=== PATIENT | female | born 1940 | race Caucasian/White ===

== ENCOUNTER 2024-08-14 11:08 | Outpatient (AMB) | payer MEDICARE, SELFPAY ==
--- NOTE | 2024-08-14 11:11 | MHC.PC.OV ---
Vital Signs 08/14/24 11:20 Height 5 ft 2 in Weight 140 lb BMI 25.6 BP 139/68 Blood Pressure Location Rt brachial Position Sitting Respiration 16 Pulse 70 Pulse Source Pulse Oximeter Temp 98.3 F Temp Source Oral Pulse Oximetry (%) 96 Oxygen Delivery Method Room Air Intake Visit Reasons: STICKER HAND-PE Intake Note: patient here for new patient visit. 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 Accompanied by: Daughter Is last menstrual period known: No Post menopausal: No Patient : No Allergies No Known Allergies Allergy (Verified 08/14/24 11:25) Tobacco use date assessed: 08/14/24 Fall risk assessment: 2 + Falls in past year Last assessed Fall Risk: 08/14/24 Dental Screening Dental Screen Date: 08/14/24 Did you have a dental visit in the last 12 months?: Yes Did you have a dental problem in the last 6 months where you did not have access to dental care?: No Was dental information given to patient?: Patient has dentist HPI HPI Comments History of Present Illness Details 84-year-old female, accompained by her daughter, presents to establish care. Prior PCP? - [facility] Last office visit/CPE/labs - About a year ago Acute issue(s) - Hyperlipidemia: On prevastatin 20 mg daily - Anxiety and depression: Reports controlled anxiety and depressive symptoms. She is on paraxotine 10 mg daily - Osteopenia: On Daily Calcium and Vitamin D3 - Obstructive sleep apnea: She had 2 sleep studies and recommended to have a 3rd sleep study to rule out central sleep apnea. Not on BIPAP or CPAP - Chronic intermittent swelling to bilateral lower legs/ankles Past Medical History - Hyperlipidemia, myopia, osteopenia, obstructive sleep apnea, anxiety, depression, memory loss, shingles, BCC (left chest, left upper lip, left lower leg) Surgical History - Tonsillectomy Family History - Dad: Alcohol abuse - Mom: Alcohol abuse Social History - Nonsmoker. Does not vape. Does not drink alcohol. Denies recreational drug use - Has been making healthy dietary choices. Active but does not exercise. Generally sleep well Health maintenance - Last eye exam was 01/29/2024 at [facility]. She will sign a release for her PCP to obtain her eye record - Last dental visit was over over a year ago; encouraged to schedule an appointment with his dentist for routine dental care - Unsure of last tetanus vaccine. She will review her old records and inform her PCP to update Tdap as needed - She notes that she is up-to-date on influenza vaccine - She had 1 shingles vaccine 3 -4 years ago and 1 pneumonia vaccine in 09/2023. Encouraged to update her shingles and pneumonia immunization. She may get the vaccines from the local pharmacy - She no long performs pap smear tests - Last mammogram was with [facility] in 07/25/2024: Benign findings. Additional mammogram or ultrasound recommended; she requests a new order. - Unsure of last colonoscopy but notes it is possibly 6-7 years ago while in [place]. She will obtain her last colonoscopy record for her PCP to review and update as needed - Last dexa scan was with [facility] in 10/20/2022 Specialists: [facility] Medical History (Updated 08/14/24 @ 16:36 by Luca Dorantes CNP) Shingles Depression Anxiety Memory loss High cholesterol Surgical History (Updated 08/14/24 @ 13:33 by Luca Dorantes CNP) Hx of tonsillectomy Family History (Updated 08/14/24 @ 11:34 by Tran Sheppard MA) Father Alcohol abuse Mother Alcohol abuse Diabetes Son Alcohol abuse Daughter FH: mental illness Social History Housing: House Patient Tobacco Use Status: Never used Tobacco e-Cigarette/Vaping Use: Never Used Second Hand Smoke Exposure: No service: No Current occupational status: retired Cognitive needs: No Hearing needs: No Vision needs: No Questionnaire PHQ-9 Over the last 2 weeks, how often have you been bothered by any of the following problems? 1. Little interest or pleasure in doing things: more than half the days 2. Feeling down, depressed, or hopeless: not at all 3. Trouble falling or staying asleep, or sleeping too much: not at all 4. Feeling tired or having little energy: several days 5. Poor appetite or overeating: not at all 6. Feeling bad about yourself - or that you are a failure or have let yourself or your family down: not at all 7. Trouble concentrating on things, such as reading the newspaper or watching television: more than half the days 8. Moving or speaking so slowly that other people could have noticed. Or the opposite - being so fidgety or restless that you have been moving around a lot more than usual: not at all 9. Thoughts that you would be better off or of hurting yourself in some way: not at all Total score: 5 Depression Screening Interpretation: Positive Depression Screening Follow-up: Existing condition and In treatment Depression Screening Done: Yes 97095 - PHQ-9 Billing: Yes Source: Developed by Drs. Carmelo Mcduffie, Holly Batista, Lauri Quigley and colleagues, with an educational madhuri from [employer]. Thrive Questionnaire Date Thrive assessed: 08/14/24 I am a: Patient What is your living situation today?: I have a steady place to live Within the past 12 months, did the food you bought not last and you didn't have the money to get more?: Never true Within the past 12 months, did you worry whether your food would run out before you got money to buy more?: Never true Do you have trouble paying for medicines?: No Do you have trouble getting transportation to medical appointments?: No Do you have trouble paying your heating and electricity bill?: No Do you have trouble taking care of your child, family member or friend?: No Do you have trouble with day-to-day activities such as bathing, preparing meals, shopping, managing finances, etc.?: No Are you currently unemployed and looking for a job?: No Are you interested in more education?: No Please select the resources that you would like help with: None Currently or been in a relationship where the following occur: No concerns reported THRIVE Score: 0 AUDIT C Alcohol Use Questionnaire (AUDIT-C) 1. How often do you have a drink containing alcohol?: Never 2. How many drinks containing alcohol do you have on a typical day when you are drinking?: 1 or 2 3. How often do you have six or more drinks on one occasion?: Never Total Score: 0 Score Reviewed/Action Taken: Yes JORGITO-7 AMB Questionnaire JORGITO-7 Date JORGITO - 7 assessed: 08/14/24 Feeling nervous, anxious, or on edge: 0 = Not at all Not being able to stop or control worryin = Nearly every day Worrying too much about different things: 2 = More than half the days Trouble relaxin = Not at all Being so restless that it is hard to sit still: 1 = Several days Becoming easily annoyed or irritable: 0 = Not at all Feeling afraid as if something awful might happen: 1 = Several days Total JORGITO-7 score (0-4 normal; 5-9 mild; 10-14 moderate; 15-21 severe): 7 Source: Developed by Drs. Carmelo Mcduffie, Holly Batista, Lauri Quigley and colleagues, with an educational madhuri from [employer]. JORGITO-7 Assessment Billing JORGITO-7 Assessment Tool: JORGITO-7 Assessment 66101 Review of Systems Const Details: Denies chills, Denies fatigue, Denies fever(s), Denies headache(s) and Denies weakness HEENT Denies change in vision, Denies dizziness, Denies headache(s), Denies hearing loss, Denies nasal congestion, Denies sinus pain, Denies sinus pressure and Denies sore throat Card Denies chest pain, Denies lightheadedness, Denies dyspnea and Denies other (palpitations) Resp Denies cough, Denies dyspnea and Denies wheezing GI Denies abdominal pain, Denies melena, Denies hematochezia, Denies change in bowel habits, Denies dyspepsia and Denies nausea Denies hematuria and Denies dysuria Musc Denies abnormal gait, Denies myalgias, Denies arthralgias, Denies numbness and Denies tingling Skin/Breast Denies rash, Denies unusual bruising and Denies wounds Neuro Denies abnormal gait, Denies dizziness, Denies headache(s), Denies memory loss, Denies numbness, Denies Sensory deficit (Neuro), Denies tingling and Denies weakness Psych Denies anxiety, Denies depression and Denies memory loss Endo Denies cold intolerance, Denies fatigue, Denies heat intolerance, Denies polydipsia and Denies polyuria Duong/Lymph Denies easy bleeding and Denies easy bruising Aller/Immun Denies wheezing Physical exam (Primary Care) Vital Signs: Last Vital Signs Temp 98.3 F 08/14/24 11:20 Pulse 70 08/14/24 11:20 Resp 16 08/14/24 11:20 BP 139/68 08/14/24 11:20 Pulse Ox 96 08/14/24 11:20 Oxygen Delivery Method Room Air 08/14/24 11:20 BMI result Body Mass Index 25.6 Tobacco/Smoking Status: Tobacco use Status Tobacco use date assessed 08/14/24 08/14/24 11:20 Patient Tobacco Use Status Never used Tobacco 08/14/24 11:20 e-Cigarette/Vaping Use Never Used 08/14/24 11:20 PHQ-9: PHQ-9 Score PHQ-9: Total score 5 08/14/24 13:24 Depression Screening Interpretation: Positive Depression Screening Follow-up: Existing condition and In treatment Thrive Assessment: Date of Thrive Assessment Date Thrive assessed 08/14/24 08/14/24 11:15 Currently or been in a relationship where the following occur: No concerns reported Const Other: General: no acute distress, well developed, alert and awake Nutritional Appearance: well nourished Orientation/consciousness: patient oriented x3 HENMT Head: Yes normocephalic and Yes atraumatic Ears: hearing grossly normal bilaterally and TM's normal bilaterally General nose exam: Normal external nose present and Normal nares present Mouth: Normal oral and palatal mucosa present and moist mucous membranes Teeth and gingiva: Full upper and partial lower dentures Throat: Yes oropharynx normal Eyes Pupils: Equal, round and reactive pupils present and Pupil accommodation reflex normal EOM: EOMs intact bilaterally Neck Neck: Yes normal visual inspection, Yes no lymphadenopathy and Yes trachea midline Thyroid: Thyroid normal Carotids: no bruits Lymphatic: no lymphadenopathy noted Chest Chest palpation & inspection: normal inspection of the chest Resp Effort & Inspection: normal respiratory effort Auscultation: clear to auscultation bilaterally Cardio Rate: regular rate Rhythm: regular rhythm Heart sounds: S1 normal heart sound present, S2 normal heart sound present, no gallops, no murmurs and no rubs Bruits: no abdominal aortic bruits and no carotid bruits GI Palpation (GI): No Abdominal aortic bruit present, Soft to palpation, nontender, No hepatosplenomegaly present and No Rebound tenderness present Auscultation: normal bowel sounds General: Yes no CVA tenderness Back/Spine/Pelvis Back: no CVA tenderness Cervical Spine: cervical ROM normal and No Cervical spine tenderness Thoracic/Lumbar Spine: thoraco-lumbar ROM normal, No pain with thoraco-lumbar ROM, No thoracic spinal tenderness and No lumbar spinal tenderness Skin General: warm and dry. Normal skin color. Normal skin turgor Lesions: no lesions Rashes: no rashes Trauma: no lacerations or abrasions Wounds: no wounds Nails: normal Neuro General: patient oriented x3, gait normal and CN's II-XI intact bilaterally Cranial nerves: Yes Equal, round and reactive pupils present Cognition (Neuro): normal cognition Gait exam (Neuro): Normal gait present Motor exam (neuro): 5/5 motor strength present throughout Sensory Exam: No Sensory deficit (Neuro) Deep tendon reflexes (DTR's): Right patellar reflex intensity grade: 2+ and Left patellar reflex intensity grade: 2+ Extrem General: Yes normal to inspection, No edema and No calf tenderness Psych Appearance: grossly normal Affect: normal affect Attitude: cooperative Thought process: Normal thought process present Coding Level of Care Code New Pt Level 3 (11802) New Pt Prev Care >65yr (95133) Diagnoses Normal physical examination, routine Z00.00 High cholesterol E78.00 Anxiety and depression F41.9; F32.A Bilateral lower extremity edema R60.0 Osteopenia M85.80 Obstructive sleep apnea G47.33 Breast cancer screening by mammogram Z12.31 Vaccine counseling Z71.85 Laboratory tests ordered as part of a complete physical exam (CPE) Z00.00 Additional Codes JORGITO-7 Assessment Billing - JORGITO-7 Assessment Tool: JORGITO-7 Assessment 86744 ([id number]) PHQ-9 - 29770 - PHQ-9 Billing: Yes ([id number]) Assessment & Plan Assessment & Plan (1) Normal physical examination, routine: Code(s): Z00.00 - Encounter for general adult medical examination without abnormal findings Category: Medical Plan: No significant functional limitation noted. Continue current treatment regimen. Fast for 10-12 hours, may drink water, and perform lab work 2-3 days before next visit. Follow-up in 2-3 days for telehealth visit for labs review or sooner with symptoms or concerns. Verbalized understanding and agreed with treatment plan. (2) High cholesterol: Code(s): E78.00 - Pure hypercholesterolemia, unspecified Category: Medical Plan: Continue to take pravastatin as prescribed. Advised to limit foods high in saturated fat and avoid foods high in trans fat. Routine exercise encouraged. Will check lipid panel and make changes as needed. Verbalized understanding and agreed with treatment plan. (3) Anxiety and depression: Code(s): F41.9 - Anxiety disorder, unspecified; F32.A - Depression, unspecified Category: Medical Plan: Controlled anxiety and depressive symptoms. PHQ-9 and JORGITO-7 scores revealed mild depression and anxiety. Continue to take paroxetine as prescribed. Routine exercise encouraged. Follow-up with symptoms or concerns. Verbalized understanding and agreed with treatment plan. (4) Bilateral lower extremity edema: Code(s): R60.0 - Localized edema Category: Medical Plan: Chronic intermittent swelling to bilateral lower legs/ankles. Bilateral lower legs and ankle normal; no edema present at this time. Advised to avoid wearing tight fitted socks. Also avoid prolonged standing or walking. Elevate bilateral lower extremities to improve swelling. Follow-up with worsening or new signs and symptoms. Verbalized understanding and agreed with treatment plan. (5) Osteopenia: Code(s): M85.80 - Other specified disorders of bone density and structure, unspecified site Category: Medical Plan: Continue current treatment regimen. Last dexa scan was with [facility] in 10/20/2022. DEXA scan ordered. (6) Obstructive sleep apnea: Code(s): G47.33 - Obstructive sleep apnea (adult) (pediatric) Category: Medical Plan: Obstructive sleep apnea: She had 2 sleep studies and recommended to have a 3rd sleep study to rule out central sleep apnea. Not on BIPAP or CPAP. Referred to [facility] sleep medicine. (7) Breast cancer screening by mammogram: Code(s): Z12.31 - Encounter for screening mammogram for malignant neoplasm of breast Category: Medical Plan: Last mammogram was with [facility] in 07/25/2024: Benign findings. Additional mammogram or ultrasound recommended; she requests a new order. Mammogram ordered. (8) Vaccine counseling: Code(s): Z71.85 - Encounter for immunization safety counseling Category: Medical Plan: She had 1 shingles vaccine 3 -4 years ago and 1 pneumonia vaccine in 09/2023. Encouraged to update her shingles and pneumonia immunization. She may get the vaccines from the local pharmacy. Verbalized understanding and agreed with the plan. (9) Laboratory tests ordered as part of a complete physical exam (CPE): Code(s): Z00.00 - Encounter for general adult medical examination without abnormal findings Category: Medical Plan: Fasting labs ordered as part of a complete physical exam. Advised to fast for at least 10 hours before getting labs drawn. May drink water Verbalized understanding and agreed with treatment plan. Orders: Orders XR DEXA axial skeleton Today M81.0 - Age-related osteoporosis without current pathological fracture, M85.80 - Other specified disorders of bone density and structure, unspecified site MM screening mammo BI Today Z12.31 - Encounter for screening mammogram for malignant neoplasm of breast Complete Blood Count Auto Diff Today Z00.00 - Encounter for general adult medical examination without abnormal findings Comprehensive [place]. Panel Fast Today Z00.00 - Encounter for general adult medical examination without abnormal findings Lipid Panel Today Z00.00 - Encounter for general adult medical examination without abnormal findings TSH reflex Free T4 Today Z00.00 - Encounter for general adult medical examination without abnormal findings Microalbumin, Random (w Creat) Today Z00.00 - Encounter for general adult medical examination without abnormal findings UA CC w/rflx Micro + Cult Today Z00.00 - Encounter for general adult medical examination without abnormal findings Vitamin D 25-OH Total Today Z00.00 - Encounter for general adult medical examination without abnormal findings Referrals Sleep Medicine Referral G47.33 - Obstructive sleep apnea (adult) (pediatric) Medications: New pravastatin 20 mg PO DAILY 30 tabs 3RF 30 days
[2024-08-14 11:20] VITALS: BP 139/68; PULSE 70; RESP 16; TEMP 36.8; O2SAT 96; BMI 25.6
--- OUTSIDE RECORDS SUMMARY | 2024-08-14 13:48 | XMS_ITS | Clinical Summary ---
Author Organization [address] [place] [address] [place] [phone] Phone Care Team Providers Care Can Solderer Name Role Phone Lio Lowe MD Primary Care Provider Unavaila ble Allergies No known active allergies Medications pravastatin (PRAVACHOL) 20 mg tablet TAKE 1 TABLET BY MOUTH EVERY DAY 90 tablet 05/04/2024 Active calcium carb-mag hydrox-simeth 1,200 mg-270 mg -80 mg/10 mL suspension Calcium Carbonate-Vi t D-Min (CALCIUM 1200 OR) Take 1 Tablet by mouth daily. Active PARoxetine (PAXIL) 10 mg tablet Take 1 Tablet by mouth 2 times daily. Active cholecalciferol (VITAMIN D-3) 50 mcg (2,000 unit) capsule Take 1 Capsule by mouth daily. Active Encounters Date Type Department Care Team Description 07/25/2024 3:20 PM EST - 07/25/2024 11:59 PM EST Hospital Encounter Radiology Department - [address] [phone] Encounter for screening mammogram for breast cancer Discharge Disposition: Home or Self Care 05/17/2024 Telephone Adult Medicine - [address] [phone] Argentina Schulte MD from Last 3 Months Immunizations Name Administration Dates Next Due Influenza trivalent, 0.5mL ( Fluad) 65yo and older 03/30/2023,05/06/2022 Moderna (age 6mo & older) Bi valent, COVID-19, 0.5 mL or 0.25 mL dosage 06/16/2022 Moderna SARS-CoV-2 COVID-19, mRNA, LNP-S, preservative free 09/30/2021,04/13/2021,09/01/2020,2020 Pneumococcal conjugate 20 va lent (Prevnar 20, PCV 20) 2mo and older 09/30/2023 Family History Medical History Relation Name Comments Breast cancer Cousin Breast cancer Daughter Breast cancer Mother's Sister Relation Name Status Comments Cousin Daughter Alive Mother's Sister Social History Tobacco Use Types Packs/Day Years Used Date Smoking Tobacco: Former Smokeless Tobacco: Never Alcohol Use Standard Drinks/Week Comments Not Currently 0 (1 standard drink = 0.6 oz pur e alcohol) Comments No Sex and Gender Information Value Date Recorded Sex Assigned at Not on file Legal Sex Female 8:49 PM EST Gender Identity Not on file Sexual Orientation Not on file Obstetrics History Para Term AB IAB SAB Ectopic Multiple Livin g Live Births 4 4 4 4 Date Outcome GA Total Labor Labor/2nd/3rd Weight Sex Type Anes PTL Brianne A1 A5 Name Clin Term Term Term Term Last Filed Vital Signs Vital Sign Reading Time Taken Comments Blood Pressure 140/60 05/10/2024 11:28 AM EST Pulse 76 09/30/2023 9:44 AM EDT Temperature - - Respiratory Rate - - Oxygen Saturation - - Inhaled Oxygen Concentration - - Weight 63.5 kg (140 lb) 05/10/2024 11:28 AM EST Height 157.5 cm (5' 2 ) 05/10/2024 11:28 AM EST Body Mass Index 25.61 05/10/2024 11:28 AM EST Plan of Treatment Health Maintenance Due Date Last Done Comments DTaP,Tdap,and Td Vaccines (1 - Tdap) 1961 Zoster Vaccines (1 of 2) 01/19/1992 RSV Immunization Patients 60+ Years Old (1 - 1-dose 75+ series) 2017 Depression Screening 07/01/2023 Falls Risk Assessment 07/01/2023 Medicare Annual Wellness Visit 07/01/2023 Social Influencers of Health Screening 07/01/2023 Hypertension/CHF/CAD Annual BMP Blood Test 09/22/2024 09/23/2023 Cholesterol Screening (Lipid Panel) 09/22/2028 09/23/2023 Osteoporosis Screening (Bone Density Screening) 10/20/2032 10/20/2022 Pneumococcal Vaccine: 50+ Years Completed 09/30/2023 COVID-19 Vaccine Completed 03/23/2024, , 06/07/2023, Additional history exists Influenza Vaccine Completed 03/23/2024, , 05/06/2022 HIB Vaccines Aged Out No longer eligi ble based on patient's age to complete this topic HPV Vaccines Aged Out No longer eligi ble based on patient's age to complete this topic Hepatitis A Vaccines Aged Out No long er eligible based on patient's age to complete this topic Hepatitis B Vaccines Aged Out No long er eligible based on patient's age to complete this topic IPV Vaccines Aged Out No longer eligi ble based on patient's age to complete this topic MMR Vaccines Aged Out No longer eligi ble based on patient's age to complete this topic Meningococcal ACWY Vaccine Aged Out N o longer eligible based on patient's age to complete this topic Meningococcal B Vacine Aged Out No lo nger eligible based on patient's age to complete this topic RSV Immunization Patients Under 20 months Aged Out No longer eligible based on patient's age to complete this topic Varicella Vaccines Aged Out No longer eligible based on patient's age to complete this topic Procedures Procedure Name Priority Date/Time Associated Diagnosis Comments MG MAMMO DIGITAL SCREENING W JAMES BILAT Routine 07/25/2024 3:51 PM EST Encounter for screening mammogram for breast cancer HM ANNUAL BMP BLOOD TEST Routine 09/23/2023 LIPID PANEL Routine 09/23/2023 DXA BONE DENSITY STUDY 1+ SITS AXIAL SKEL Routine 10/20/2022 9:35 AM EDT Encounter for screening for osteoporosis from Last 3 Months or Most Recently Relevant to Health Maintenance Results * (ABNORMAL) MG Mammo Digital Screening w James bilat (07/25/2024 3:51 PM EST) Anatomical Region Laterality Modality Breast Bilateral Mammography 07/26/2024 5:48 PM EST Addenda Addendum by Joelle Bansal MD on 08/08/2024 9:37 AM EST Prior mammograms ??dated back to 04/04/2020, obtained in [place] became available for comparison. Small nodular opacity in the inferior medial right breast became significantly larger and therefore requires additional evaluation. ??We will contact the patient for the arrangements. -------- ADDENDUM -------- Dictated By: Joelle Bansal Dictated Date: 08/08/2024 09:35 ET Assigned Physician: Joelle Bansal Reviewed and Electronically Signed By: Joelle Bansal Signed Date: 08/08/2024 09:37 ET Workstation ID: [id number] Transcribed By: Self Edit Transcribed Date: 08/08/2024 09:35 ET Impressions 07/26/2024 5:53 PM EST Small circumscribed nodular opacity in the inferomedial right breast. ??Additional evaluation with spot compression views in CC and MLO projections as well as with ultrasound is recommended. ??We will contact the patient for the arrangements. BI-RADS CATEGORY: 0 - INCOMPLETE - NEED ADDITIONAL IMAGING EVALUATION RECOMMENDATION: Additional right breast imaging recommended. Mammo Location: [facility], [address] [place] [address], [id number], . -------- FINAL REPORT -------- Dictated By: Joelle Bansal Dictated Date: 07/26/2024 17:48 ET Assigned Physician: Joelle Bansal Reviewed and Electronically Signed By: Joelle Bansal Signed Date: 07/26/2024 17:53 ET Workstation ID: [id number] Transcribed By: Self Edit Transcribed Date: 07/26/2024 17:48 ET Narrative 07/26/2024 5:53 PM EST Bilateral screening mammogram. CLINICAL: 84 years old, Female, routine annual exam. COMPARISON: Patient stated that she will last mammogram was obtained in [place]. ??She does not remember the facility it was performed. ??According to her it was done approximately 3 years ago. ?? TECHNIQUE: Bilateral MLO and CC views were obtained digitally with 2D C views and 3-D mammogram (digital breast tomosynthesis). Computer-aided detection was utilized in evaluation of this exam (CAD). FINDINGS: There is a small circumscribed nodular opacity in the right inferior medial breast. There is no evidence of other suspicious mass or architectural distortion. ??No worrisome calcifications are evident BREAST DENSITY: B - There are scattered areas of fibroglandular density. Procedure Note Joelle Bansal MD - 07/26/2024 Bilateral screening mammogram. CLINICAL: 84 years old, Female, routine annual exam. COMPARISON: [place] facility it was performed. Accordingto her it was done approximately 3 years ago. TECHNIQUE: Bilateral MLO and CC views were obtained digitally with 2D Cviews and 3-D mammogram (digital breast tomosynthesis). Computer-aideddetection was utilized in evaluation of this exam (CAD). FINDINGS: There is a small circumscribed nodular opacity in the right inferiormedial breast. There is no evidence of other suspicious mass or architectural distortion.No worrisome calcifications are evident BREAST DENSITY: B - There are scattered areas of fibroglandular density. IMPRESSION: Small circumscribed nodular opacity in the inferomedial right breast.Additional evaluation with spot compression views in CC and MLOprojections as well as with ultrasound is recommended. We will contactthe patient for the arrangements. BI-RADS CATEGORY: 0 - INCOMPLETE - NEED ADDITIONAL IMAGING EVALUATION RECOMMENDATION: Additional right breast imaging recommended. Mammo Location: [facility], [address] [place] [address], [id number], . -------- FINAL REPORT -------- Dictated By: Joelle Bansal Dictated Date: 07/26/2024 17:48 ET Assigned Physician: Joelle Bansal Reviewed and Electronically Signed By: Joelle Bansal Signed Date: 07/26/2024 17:53 ET Workstation ID: [id number] Transcribed By: Self Edit Transcribed Date: 07/26/2024 17:48 ET Lio Lowe MD IMG BI PROCEDURES Edited Result - Final * Annual BMP Blood Test (09/23/2023) Annual BMP Blood Test abstracted Result [facility] Historical Provider HEALTH MAINTENANCE Final Result * (ABNORMAL) Lipid panel (09/23/2023) LDL/HDL Ratio 3 0 - 4 Triglycerides 79(A) >=150 mg/dL Cholesterol 177 0 - 200 mg/dL HDL 63 >=40 mg/dL LDL Cholesterol 99 0 - 100 mg/dL Blood Venous blood specimen / Unknown Result [facility] Historical Provider LAB BLOOD ORDERABLES Alison l Result * DXA BONE DENSITY STUDY 1+ SITS AXIAL SKEL (10/20/2022 9:35 AM EDT) Anatomical Region Laterality Modality Bone Densitometr y 09/28/2022 10:2 3 AM EDT Narrative 10/20/2022 12:40 PM EDT BONE DENSITY (DEXA) ? Lumbar Spine T-score is -1.5. ?? (SD relative to 20-29 y/o adult) Z-score is 1.2. ??(SD relative to age matched peers) This is considered osteopenia by WHO criteria. Left Hip T-score is -2.2. Z-score is 0.1. This is considered osteopenia by WHO criteria. IMPRESSION: This patient is considered to have osteopenia by WHO criteria. This patient has a 20% risk of major osteoporotic fracture and a 7.1% risk of hip fracture over the next 10 years. (World Health Organization Fracture Risk Assessment) The [facility] Department of Internal Medicine recommends using National Osteoporosis Foundation (NOF) guidelines in treatment decisions related to osteoporosis. NOF guidelines suggest considering treatment for postmenopausal women and men aged 50 or older presenting with the following: History of hip or vertebral fracture. T-score = -2.5 (DXA) at the femoral neck, total hip, or spine, after appropriate evaluation to exclude secondary causes. Low bone mass (T-score between -1.0 and -2.5 at the femoral neck or spine) AND a 10-year probability of a hip fracture = 3% OR a 10-year probability of a major osteoporosis-related fracture = 20% based on the [place]-adapted WHO algorithm Please note that all treatment decisions require clinical judgment and consideration of individual patient factors, including patient preferences, co-morbidities, previous drug use, risk factors not captured in the FRAX model (e.g., frailty, falls, vitamin D deficiency, increased bone turnover, interval significant decline in bone density) and possible under- or over-estimation of fracture risk by FRAX. Optional alternative screening schedule based on tamika Lofton., [facility] June 24, 2011 for patients with osteopenia (based on hip BMD T-score) is as follows: * ??advanced osteopenia (T scores -2.00 to -2.49), BMD testing every year * ??moderate osteopenia (T scores -1.50 to -1.99), BMD testing every 5 years mild osteopenia or normal BMD (T scores -1.50 and higher), BMD testing every 15 years Procedure Note Francesca Varma MD - 07/12/2023 BONE DENSITY (DEXA) Lumbar Spine T-score is -1.5. (SD relative to 20-29 y/o adult) Z-score is 1.2. (SD relative to age matched peers) This is considered osteopenia by WHO criteria. Left Hip T-score is -2.2. Z-score is 0.1. This is considered osteopenia by WHO criteria. IMPRESSION: This patient is considered to have osteopenia by WHO criteria. Thispatient has a 20% risk of major osteoporotic fracture and a 7.1% risk of hip fracture over the next10 years. (World Health Organization Fracture Risk Assessment) The [facility] Department of Internal Medicine recommendsusing National Osteoporosis Foundation (NOF) guidelines in treatment decisions related toosteoporosis. NOF guidelines suggest considering treatment for postmenopausal women and menaged 50 or older presenting with the following: History of hip or vertebral fracture. T-score = -2.5 (DXA) at the femoral neck, total hip, or spine, afterappropriate evaluation to exclude secondary causes. Low bone mass (T-score between -1.0 and -2.5 at the femoral neck or spine)AND a 10-year probability of a hip fracture = 3% OR a 10-year probability of a majorosteoporosis-related fracture = 20% based on the [place]-adapted WHO algorithm Please note that all treatment decisions require clinical judgment andconsideration of individual patient factors, including patient preferences, co- morbidities,previous drug use, risk factors not captured in the FRAX model (e.g., frailty, falls, vitaminD deficiency, increased bone turnover, interval significant decline in bone density) andpossible under- or over-estimation of fracture risk by FRAX. Optional alternative screening schedule based on tamika Lofton., NEJMJanuary 2011 for patients with osteopenia (based on hip BMD T-score) is as follows: * advanced osteopenia (T scores -2.00 to -2.49), BMD testing every year * moderate osteopenia (T scores -1.50 to -1.99), BMD testing every 5years mild osteopenia or normal BMD (T scores -1.50 and higher), BMD testingevery 15 years Argentina Emerson MD IM DXA PROCEDURES Final Result from Last 3 Months or Most Recently Relevant to Health Maintenance Insurance [facility] Member Subscriber Plan / Payer (Ef fective 2022-Present) Name:Alexia Ruelas Relation to Subscriber:Self Name:Alexia Ruelas Payer ID:[id number] Group ID:[id number] Type:Not on file Address: [facility] [address] [id number] [facility] MEDICARE Member Subscriber Plan / Payer (Ef fective 2022-Present) Name:Alexia Ruelas Relation to Subscriber:Self Name:Alexia Ruelas Payer ID:[id number] Group ID:[id number] Type:Not on file Address: [address] [place] [id number] [employer] MED[employer]ARE ADVANTAGE MED[place]ID - [place] Care Teams Can Solderer Relationship Specialty Start Date End Date Lio Lowe MD PCP - General Internal Medicine 07/25/24
--- OUTSIDE RECORDS SUMMARY | 2024-08-14 13:48 | XMS_ITS | Encounter Summary ---
Author Organization [facility] Address [address] [place] [address] Care Team Providers Care Shop And Alteration Tailor Name Role Phone Lio Lowe MD Primary Care Provider Unavaila ble Reason for Visit * Imaging (Routine) - Pending Review Specialty Diagnoses / Procedures Referred By Contac t Referred To Contact Radiology Diagnoses Encounter for screening mammogram for breast cancer Procedures MG Mammo Digital Screening w Oz bilat MG Mammo Digital Screening w Oz bilat Lio Lowe MD [facility] Referral ID Status Reason Start Date Expiration Date V isits Requested Visits Authorized [id number] Pending Review 03/22/2024 03/22/2025 1 1 Encounter Details Date Type Department Care Team (Latest Contact Info) Description 07/25/2024 3:20 PM EST - 07/25/2024 11:59 PM EST Hospital Encounter Radiology Department [address] [phone] Encounter for screening mammogram for breast cancer Discharge Disposition: Home or Self Care Social History Tobacco Use Types Packs/Day Years Used Date Smoking Tobacco: Former Smokeless Tobacco: Never Alcohol Use Standard Drinks/Week Comments Not Currently 0 (1 standard drink = 0.6 oz pur e alcohol) Comments No Sex and Gender Information Value Date Recorded Sex Assigned at Not on file Legal Sex Female 8:49 PM EST Gender Identity Not on file Sexual Orientation Not on file documented as of this encounter Medications at Time of Discharge calcium carb-mag hydrox-simeth 1,200 mg-270 mg -80 mg/10 mL suspension Calcium Carbonate-Vit D-Min (CALCIUM 1200 OR) Take 1 Tablet by mouth daily. cholecalciferol (VITAMIN D-3) 50 mcg (2,000 unit) capsule Take 1 Capsule by mouth daily. PARoxetine (PAXIL) 10 mg tablet Take 1 Tablet by mouth 2 times daily. pravastatin (PRAVACHOL) 20 mg tablet TAKE 1 TABLET BY MOUTH EVERY DAY 90 tablet 05/04/2024 documented as of this encounter Discharge Disposition Disposition Code Departure Means Destination Home or Self Care documented in this encounter Plan of Treatment Not on file documented as of this encounter Procedures Procedure Name Priority Date/Time Associated Diagnosis Comments MG MAMMO DIGITAL SCREENING W OZ BILAT Routine 07/25/2024 3:51 PM EST Encounter for screening mammogram for breast cancer documented in this encounter Results * (ABNORMAL) MG Mammo Digital Screening w Oz bilat (07/25/2024 3:51 PM EST) Anatomical Region Laterality Modality Breast Bilateral Mammography 07/26/2024 5:48 PM EST Addenda Addendum by Joelle Bansal MD on 08/08/2024 9:37 AM EST Prior mammograms ??dated back to 04/04/2020, obtained in [place] became available for comparison. Small nodular opacity in the inferior medial right breast became significantly larger and therefore requires additional evaluation. ??We will contact the patient for the arrangements. -------- ADDENDUM -------- Dictated By: Joelle Bansal Dictated Date: 08/08/2024 09:35 ET Assigned Physician: Joelle Bansal Reviewed and Electronically Signed By: Joelle Bansal Signed Date: 08/08/2024 09:37 ET Workstation ID: [id number] Transcribed By: Self Edit Transcribed Date: 08/08/2024 [...] Additional right breast imaging recommended. Mammo Location: [facility], [address] [place] [address], [phone], . -------- FINAL REPORT -------- Dictated By: Joelle Bansal Dictated Date: 07/26/2024 17:48 ET Assigned Physician: Joelle Bansal Reviewed and Electronically Signed By: Joelle Bansal Signed Date: 07/26/2024 17:53 ET Workstation ID: [id number] Transcribed By: Self Edit Transcribed Date: 07/26/2024 17:48 ET Narrative 07/26/2024 5:53 PM EST Bilateral screening mammogram. CLINICAL: 84 years old, Female, routine annual exam. COMPARISON: Patient stated that she will last mammogram was obtained in [place]. ??She does not remember the facility it [...] [facility] the [facility] it [...] Additional right breast imaging recommended. Mammo Location: [facility], [address] [place] [address], [id number], . -------- FINAL REPORT -------- Dictated By: Joelle Bansal Dictated Date: 07/26/2024 17:48 ET Assigned Physician: Joelle Bansal Reviewed and Electronically Signed By: Joelle Bansal Signed Date: 07/26/2024 17:53 ET Workstation ID: [id number] Transcribed By: Self Edit Transcribed Date: 07/26/2024 17:48 ET Lio Lowe MD IMG BI PROCEDURES Edited Result - Final documented in this encounter Visit Diagnoses Diagnosis Encounter for screening mammogram for breast cancer documented in this encounter Care Teams Shop And Alteration Tailor Relationship Specialty Start Date End Date Lio Lowe MD PCP - General Internal Medicine 07/25/24 documented as of this encounter
== END 2024-08-14 12:12 | disposition home or self-care (01) ==
LOC: HO.HMCFM 11:08
PROVIDERS: Visit Provider Nurse Practitioner Family
DX: Z00.00 Encounter for general adult medical examination without abnormal findings (principal); E78.00 Pure hypercholesterolemia, unspecified; F41.9 Anxiety disorder, unspecified; F32.A Depression, unspecified; R60.0 Localized edema; M85.80 Other specified disorders of bone density and structure, unspecified site; G47.33 Obstructive sleep apnea (adult) (pediatric); Z12.31 Encounter for screening mammogram for malignant neoplasm of breast; Z71.85 Encounter for immunization safety counseling

== ENCOUNTER → 2024-08-14 11:08 | Outpatient (BNVA) | payer MEDICARE, SELFPAY | PROVIDERS: Visit Provider Nurse Practitioner Family | DX: Z00.00 Encounter for general adult medical examination without abnormal findings (principal); E78.00 Pure hypercholesterolemia, unspecified; F41.9 Anxiety disorder, unspecified; F32.A Depression, unspecified; R60.0 Localized edema; M85.80 Other specified disorders of bone density and structure, unspecified site; G47.33 Obstructive sleep apnea (adult) (pediatric) | CPT/HCPCS: 96127; 99202; 99387 ==

== ENCOUNTER 2024-08-22 08:18 | Outpatient (REF) | payer MEDICARE, SELFPAY ==
[2024-08-22 09:07] LABS: MANUAL DIFF FLAG NO
[2024-08-22 09:14] LABS: Basophils Absolute Auto 0.1 X10*3/uL (0.0-0.2); Basophils Percent Auto 1.3 % (0-2); Eosinophils Absolute Auto 0.3 X10*3/uL (0.0-0.4); Eosinophils Percent Auto 5.4 % (0-4); Hematocrit 32.5 % (37.0-47.0); Hemoglobin 10.8 g/dl (12.0-16.0); Imm Gran Abs Auto 0.01 X10*3/uL (0.00-0.03); Imm Gran Pct Auto 0.2 % (0.0-0.4); Lymphocytes Percent Auto 36.5 % (20-40); Mean Corpuscular HGB Conc 33.2 g/dl (31.0-35.0); Mean Corpuscular Hemoglobin 31.6 pg (27.0-33.0); Mean Platelet Volume 10.1 fL (9.4-12.3); Monocytes Absolute Auto 0.6 X10*3/uL (0.1-1.2); Monocytes Percent Auto 10.4 % (2-11); Neutrophils Absolute Auto 2.5 x10*3/uL (2.0-8.3); Neutrophils Percent Auto 46.2 % (45-73); Platelet Count 232 X10*3/uL (160-400); Red Blood Count 3.42 X10*6/uL (4.20-5.50); Red Cell Distribution Width 12.3 % (11.0-16.0); White Blood Count 5.4 X10*3/uL (4.8-10.8)
[2024-08-22 09:22] LABS: Appearance Urine Turbid; Color Urine Yellow; Glucose Urine UA Negative (Negative); Leukocyte Esterase Urine Small (1+) (Negative); Nitrite Urine Negative (Negative); PH 8.5 (5.0-9.0); UMIC TRIGGER UACC YES; Urine Blood Trace (Negative); Urine Ketones Negative (Negative); Urine Protein Negative (Neg-Trace)
[2024-08-22 09:27] LABS: Bacteria Urine None Seen (None Seen); Hyaline Casts Urine 0-2 /LPF (0-2); UACC Culture Trigger YES; WBC Urine 21-50 /HPF (0-5)
[2024-08-22 09:39] LABS: Creatinine Urine 60.12 mg/dL; Microalbum/Creatinine Ratio Ur 49.9 ug/mg cr (<30)
[2024-08-22 09:45] LABS: Alanine Aminotransferase 15 U/L (0-31); Albumin Level 3.7 g/dL (3.5-5.0); Alkaline Phosphatase 57 U/L (39-117); Anion Gap 8 (12-20); Aspartate Amino Transferase 24 U/L (5-31); Bilirubin Total 0.4 mg/dL (0.0-1.0); Blood Urea Nitrogen 10 mg/dL (9-16); Calcium 9.5 mg/dL (8.4-10.2); Carbon Dioxide 32 mmol/L (22-29); Chloride 107 mmol/L (96-108); Cholesterol 179 mg/dL (<200); Estimated Glomerular Filt Rate > 60; Glucose Fasting 80 mg/dL (60-99); HDL Cholesterol 51 mg/dL (>40); LDL Cholesterol Calculated 108 mg/dL (<100); Potassium 3.7 mmol/L (3.3-5.1); Sodium 143 mmol/L (135-145); Total Protein 6.7 g/dL (6.5-8.0); Triglycerides 102 mg/dL (<150)
[2024-08-22 10:01] LABS: TSH reflex Free T4 2.04 uIU/mL (0.32-4.0); Vitamin D 25-OH Total 63.1 ng/mL (>30)
== END 2024-08-22 08:19 | disposition home or self-care (01) ==
LOC: HO.WFDLDS 08:18
PROVIDERS: Visit Provider Nurse Practitioner Family
DX: Z00.00 Encounter for general adult medical examination without abnormal findings (principal); R82.90 Unspecified abnormal findings in urine
CPT/HCPCS: 36415; 80053; 80061; 81001; 82043; 82306; 82570; 84443; 85025; 87086

== ENCOUNTER 2024-08-28 11:48 | Outpatient (AMB) | payer MEDICARE, SELFPAY ==
--- NOTE | 2024-08-28 11:45 | A.OFFPC_ITS ---
Intake Visit Reasons: Telehealth 2-3 wks labs review Intake Note: patient here for Telehealth follow up for lab review Chiropractic Practice Manager Required: No Is last menstrual period known: No Post menopausal: No Patient : No Allergies No Known Allergies Allergy (Verified 08/28/24 11:45) Tobacco use date assessed: 08/28/24 Fall risk assessment: 2 + Falls in past year Last assessed Fall Risk: 08/28/24 Dental Screening Dental Screen Date: 08/28/24 Did you have a dental visit in the last 12 months?: No Did you have a dental problem in the last 6 months where you did not have access to dental care?: No Was dental information given to patient?: Patient has dentist HPI HPI Comments History of Present Illness Details 84-year-old female for a telehealth visi t for review of recent lab results. She offers no complaints and denies acute symptoms at this time. Reports pain and swelling, and mild redness to the middle finger of her PIP joint of the right hand since her last visit here. She denies history of gout. [facility] Medical History (Updated 08/28/24 @ 13:33 by Luca Dorantes CNP) Shingles Depression Anxiety Memory loss High cholesterol Surgical History (Updated 08/14/24 @ 13:33 by Luca Dorantes CNP) Hx of tonsillectomy Family History (Updated 08/14/24 @ 11:34 by Tran Sheppard MA) Father Alcohol abuse Mother Alcohol abuse Diabetes Son Alcohol abuse Daughter FH: mental illness Social History Housing: House Patient Tobacco Use Status: Never used Tobacco e-Cigarette/Vaping Use: Never Used Second Hand Smoke Exposure: No Patient : No service: No Current occupational status: retired Cognitive needs: No Hearing needs: No Vision needs: No Questionnaire Thrive Questionnaire Date Thrive assessed: 08/14/24 JORGITO-7 AMB Questionnaire JORGITO-7 Date JORGITO - 7 assessed: 08/14/24 Source: Developed by Drs. Carmelo Mcduffie, Holly Batista, Lauri Quigley and colleagues, with an educational madhuri from [employer]. Review of Systems Const Details: Denies chills, Denies fatigue, Denies fever(s), Denies headache(s) and Denies weakness Cardiac Denies chest pain, Denies claudication, Denies leg edema, Denies lightheadedness, Denies palpitations, Denies dyspnea, Denies dyspnea on exertion, Denies orthopnea and Denies other (Loss of consciousness) Resp Denies cough, Denies excessive phlegm production, Denies dyspnea, Denies dyspnea on exertion, Denies snoring and Denies wheezing Musc Reports as per HPI Physical exam (Primary Care) Tobacco/Smoking Status: Tobacco use Status Tobacco use date assessed 08/28/24 08/28/24 11:46 Patient Tobacco Use Status Never used Tobacco 08/28/24 11:46 e-Cigarette/Vaping Use Never Used 08/28/24 11:46 Thrive Assessment: Date of Thrive Assessment Date Thrive assessed 08/14/24 08/28/24 11:46 Const Other: Patient is alert and oriented x 3. Telehealth Telehealth Telehealth Platform: Telephone Location of provider rendering services: practice address Location of patient: address on file Patient Identification confirmed using: Name, : Yes Telehealth method: voice only Patient verbally consented to treatment: Yes Patient verbally consented to billing insurance company: Yes Patient informed of any privacy concerns related to visit: Yes Coding Level of Care Code Tele Est Pt Level 3 (91578) Diagnoses Normocytic anemia D64.9 Microalbuminuria R80.9 High cholesterol E78.00 Pain of finger of right hand M79.644 Time Spent (min) 15 Assessment & Plan Assessment & Plan (1) Normocytic anemia: Code(s): D64.9 - Anemia, unspecified Category: Medical Plan: Recent RBC and H&H is slightly low, 3.42 and 10.8/32.5 respectively, MCV is normal. Will check iron profile, ferritin, vitamin B12, and folate levels. Will review results and make changes as needed. Verbalized understanding and agreed with the plan. (2) Microalbuminuria: Code(s): R80.9 - Proteinuria, unspecified Category: Medical Plan: Recent urine microalbumin/creatinine ratio is slightly elevated, 49.9. Recent BUN, creatinine, and GFR more her normal. Likely dehydration. Adequate hydration encouraged. Will recheck urine microalbumin/creatinine ratio in 3 months and make changes as needed. Verbalized understanding and agreed with the plan. (3) High cholesterol: Code(s): E78.00 - Pure hypercholesterolemia, unspecified Category: Medical Plan: Recent LDL is slightly elevated, 108, triglycerides, total cholesterol, and HDL levels are normal. Continue to take pravastatin 20 mg daily. Advised to limit foods high in saturated fat and avoid foods high in trans fat. Routine exercise encouraged. Fast for 10-12 hours, may drink water, and perform lipid panel blood work 2-3 days before next visit. Follow-up in 3 months. Verbalized understanding and agreed with treatment plan. (4) Pain of finger of right hand: Code(s): M79.644 - Pain in right finger(s) Category: Medical Plan: Reports pain and swelling and mild redness to the PIP joint of the right 3rd digit since her last visit here. No history of gout. May take Tylenol ibuprofen for pain and or discomfort. Cool compresses encouraged. Will check uric acid level. Follow-up with worsening or new symptoms. Verbalized understanding and agreed with treatment plan. Orders: Orders Lipid Panel 3 Months E78.00 - Pure hypercholesterolemia, unspecified Ferritin Today D64.9 - Anemia, unspecified Vitamin B12 and Folate Today D64.9 - Anemia, unspecified Microalbumin, Random (w Creat) 3 Months R80.9 - Proteinuria, unspecified Uric Acid Today M79.644 - Pain in right finger(s) IRON PROFILE Today D64.9 - Anemia, unspecified Patient Instructions: 3 mos HLD, microalbuminuria, anxiety, depression
== END 2024-08-28 13:40 | disposition home or self-care (01) ==
LOC: HO.HMCFM 11:48
PROVIDERS: PCP Nurse Practitioner Family; Visit Provider Nurse Practitioner Family
DX: D64.9 Anemia, unspecified (principal); R80.9 Proteinuria, unspecified; E78.00 Pure hypercholesterolemia, unspecified; M79.644 Pain in right finger(s)

== ENCOUNTER 2024-08-30 08:50 | Outpatient (REF) | payer MEDICARE, SELFPAY ==
[2024-08-30 11:35] LABS: Iron 139 mcg/dL (30-160); Percent Iron Saturation 85 % (15-50); Total Iron Binding Capacity 164 mcg/dL (228-428); Unsaturated Iron Binding 25 ug/dL; Uric Acid 5.2 mg/dL (2.4-5.7)
[2024-08-30 11:53] LABS: Ferritin 427 ng/mL (10-250)
[2024-08-30 12:02] LABS: Folate 16.3 ng/mL (> or = 4.0); Vitamin B12 894 pg/mL (200-900)
== END 2024-08-30 08:51 | disposition home or self-care (01) ==
LOC: HO.WFDLDS 08:50
PROVIDERS: Visit Provider Nurse Practitioner Family
DX: D64.9 Anemia, unspecified (principal); M79.644 Pain in right finger(s)
CPT/HCPCS: 36415; 82607; 82728; 82746; 83540; 84550

== ENCOUNTER 2024-09-21 12:46 | Outpatient (AMB) | payer MEDICARE, SELFPAY ==
[2024-09-21 12:49] VITALS: BP 128/62; PULSE 73; O2SAT 96; BMI 25.5
--- NOTE | 2024-09-21 12:49 | A.OFFVIS_ITS ---
Vital Signs 09/21/24 12:49 Height 5 ft 2 in Weight 139 lb 4 oz BMI 25.5 BP 128/62 Blood Pressure Location Rt brachial Position Sitting Pulse 73 Pulse Source Pulse Oximeter Pulse Oximetry (%) 96 Oxygen Delivery Method Room Air Intake Visit Reasons: INP-CANDY - Confirmed Intake Note: Patient referred in house Dr. Dorantes for CANDY. Accompanied by: Daughter Allergies No Known Allergies Allergy (Verified 09/21/24 12:52) HPI Comments Details: 84 year old female referred to us for sleep evaluation by her PCP. Her daughter Susan is here with her to help with history. She says she had 3 sleep studies with [facility], she states 2 PSG, and a third was a BIPAP titration study. Her late was a heavy smoker so she was exposed to second hand smoke is being followed by Dr. Luca Dorantes. She goes to sleep various hours of the night, denies nocturia, snoring, gasping for air. She feels tired when she wakes up the next day, she moves around alot in her sleep, tosses and turns all night long then takes plenty of naps through out the day. She c/o bilateral shoulder pain and neck pain with swollen and warm joints bilaterally hands Rheumatoid arthristis? Osteoarthritis RLS denies muscle spasms, numbness and tingling, occasional, she wears compr ession socks for bilateral ankle / feet edema. She states her L. knee is painful, she is able to go up and down the stairs and her daughter helps with all her ADLs. Her mood is anxious due to a possible upcoming move and she is getting confused more often according to her daughter. She can complete daily tasks but she can't remember if she has done them and takes a very long time to do them, like brushing her teeth. Now she is having more word finding difficulties, so she has to write down everything she needs to complete for the day. She denies any family history of dementia or movement disorders. She has a history of depression and anxiety, however recently has been in good spirits, and she eats a well balanced diet, denies constipation, has a BM daily. Her Cholesterol is high and she is taking pravastatin, Labs are reviewed with her today and she has normocytic anemia, and micro-albuminemia she will f/u with her pcp in 3 months. She continues to have difficulty walking and getting out of a chair, dizziness when she stands, with balance and gait issues, however says she will try to do the pedal bike at home since the weather is now getting warmer she may try to walk outside for 10min or so. [facility] Medical History Shingles Depression Anxiety Memory loss High cholesterol Surgical History Hx of tonsillectomy Family History Father Alcohol abuse Mother Alcohol abuse Diabetes Son Alcohol abuse Daughter FH: mental illness Social History Housing: House Patient Tobacco Use Status: Never used Tobacco e-Cigarette/Vaping Use: Never Used Second Hand Smoke Exposure: No service: No Current occupational status: retired Cognitive needs: No Hearing needs: No Vision needs: No Physical Exam Vital Signs: Last Vital Signs Pulse 73 09/21/24 12:49 BP 128/62 09/21/24 12:49 Pulse Ox 96 09/21/24 12:49 Oxygen Delivery Method Room Air 09/21/24 12:49 BMI result Body Mass Index 25.5 Assessment & Plan Assessment & Plan (1) Obstructive sleep apnea: Code(s): G47.33 - Obstructive sleep apnea (adult) (pediatric) Category: Medical (2) Knee pain, chronic: Code(s): M25.569 - Pain in unspecified knee; G89.29 - Other chronic pain Category: Medical Qualifiers: Laterality: bilateral Qualified Code(s): M25.561 - Pain in right knee; M25.562 - Pain in left knee; G89.29 - Other chronic pain (3) Confusion and disorientation: Code(s): R41.0 - Disorientation, unspecified Category: Medical (4) Benign positional vertigo: Code(s): H81.10 - Benign paroxysmal vertigo, unspecified ear Category: Medical Qualifiers: Laterality: unspecified laterality Qualified Code(s): H81.10 - Benign paroxysmal vertigo, unspecified ear (5) Fatigue due to sleep pattern disturbance: Code(s): R53.83 - Other fatigue; G47.9 - Sleep disorder, unspecified Category: Medical (6) Excessive daytime sleepiness: Code(s): G47.19 - Other hypersomnia Category: Medical (7) High cholesterol: Code(s): E78.00 - Pure hypercholesterolemia, unspecified Category: Medical (8) Pain of finger of right hand: Code(s): M79.644 - Pain in right finger(s) Category: Medical (9) Anxiety and depression: Code(s): F41.9 - Anxiety disorder, unspecified; F32.A - Depression, unspecified Category: Medical (10) Balance problem due to vestibular dysfunction: Code(s): H81.90 - Unspecified disorder of vestibular function, unspecified ear Category: Medical Qualifiers: Laterality: bilateral Qualified Code(s): H81.93 - Unspecified disorder of vestibular function, bilateral Plan Fatigue: CANDY will evaluate her reports from [place] (2PSGs) 1 HST)- per daughter and start therapy accordingly. Labs, Ferritin is high TIBC 164 L, %sat is 85 H, and B12, Vit D, TSH normal, LDL is high, followed by PCP she has Normocytic Anemia and Microalbuminemia. Cognitive difficulties, will evaluate with MMSE at next visit, will f/u after sleep therapy is started BIPAP vs CPAP. Joint Pain Shoulders bilateral and Knees PT Arthritis? 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 Rheumatology and PT evaluate for cortisone shots if needed in shoulders, or knee along with strength training and balance difficulties. RLS ? Will evaluate at next visit, as she does have cramps / Spasms, not numbness, with pins and needles. Orders: Orders RT home sleep study Today G47.19 - Other hypersomnia PT Evaluation and Treatment Today H81.90 - Unspecified disorder of vestibular function, unspecified ear Referrals Rheumatology Referral G89.29 - Other chronic pain, M25.561 - Pain in right knee, M25.562 - Pain in left knee, M79.644 - Pain in right finger(s) Patient Instructions: Sleep Hygiene provided: set a scheduled bedtime and wake time to help regulate the circadian rhythm and balance the release of pituitary hormones. Sleep in a dark room, temperatures below 68 degrees, and no devices n bed. Limit caffeinated products 6 hours prior to bed, and limit fluids 2-4 hours prior to bed. Gentle night yoga, diffusing essential oils, and playing soft music can be relaxing. Osteo/ Rheum arthritits? Rheumatology f/u, patient declines PT today. Reviewed labs today: TIBC is 164L and % saturation is 85 High, Ferritin is 427H. Vit D, B12, TSH is normal LDL is high, she is on Pravastatin. Cognitive Difficulties : MMSE next visit, will monitor. Sleep Difficulties CANDY? Request records from [place] and [facility], per daughter Susan she will drop them off all 3 Sleep studies today after this visit. 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
--- OUTSIDE RECORDS SUMMARY | 2024-09-21 13:21 | XMS_ITS | Patient Health Record ---
Author Organization [facility] Address [address] [place] [address] Care Team Providers Care Baker Apprentice Name Role Phone NAJMA GERMAN Primary Care Provider [phone] Allergies No Known Allergies Medications Medication SIG (Take, Route, Frequency, Duration) Notes Start Date End Date Status Biotin 5000 MCG 1 capsule Orally Onc e a day Not-Taking Pravastatin Sodium 20 MG Take 1 tablet b y mouth once daily for 90 days for 90 Active Hydrocortisone 1 % 1 application to affected area Externally Twice a day Active Triamcinolone Acetonide 0.5 % 1 application to affected area Externally Twice a day for 15 days Active Pravastatin Sodium 20 MG 1 tablet Orally Once a day for 90 days Active DHEA 50 MG Orally Active Centrum Adults - as directed Orally Active Ginkgo Biloba 60 MG as directed Orally Active Immunizations Vaccine Route Administration Date Status Comme nts FLU Vaccine IM Intramuscular 03/16/2021 Administered Social History Tobacco Use: Social History Observation Description Date Details (start date - stop date) Never Smoker NA - NA ALCOHOL SCREENING Question Answer Notes Did you have a drink containing alcohol in the p ast year? No Points 0 Interpretation Negative Drugs Question Answer Notes Have you used drugs other th an those for medical reasons in the past 12 months? No Tobacco use other than smoking: Question Answer Notes Are you an other tobacco user? No TOBACO USE/SMOKING Question Answer Notes Are you a: nonsmoker Fall Risk Assessment Question Answer Notes Fall risk assessment No falls in the past year Mammogram Question Answer Notes Mammogram date completed Eye exams Question Answer Notes Eye exams date completed 2021 My eye Problems Problem Type SNOMED Code ICD Code Onset Dates Problem Status W/U Status Risk Notes Problem Hyperlipidemia (96086163) Hyperlipidemia (E78.5) Active confirmed Problem History of malignant neoplasm of skin (situation) (671459062) Personal history of other malignant neoplasm of skin (Z85.828) Active confirmed Problem Hyperlipidemia (47436931) Hyperlipidemia (E78.5) Active confirmed Problem Senile purpura (31933016) Senile purpura (D69.2) Active confirmed Problem Localized, primary osteoarthritis of the hand (318432622) Osteoarthritis of left hand, unspecified osteoarthritis type (M19.042) Active confirmed Problem Major depression in partial remission (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 Metabolic Panel (14) - [id number] 02/22 CBC 08/23/2013 CBC 01/29/2014 CBC 02/14/2012 URINALYSIS ([facility] Only) 2013 URINALYSIS ([facility] Only) 2013 Venipuncture 01/29/2014 Venipuncture 06/23/2015 Venipuncture 08/09/2011 Venipuncture 08/23/2013 Venipuncture 02/22/2013 Venipuncture 02/08/2012 Venipuncture 08/07/2012 Venipuncture 08/28/2020 Venipuncture 07/08/2021 Venipuncture 01/11/2022 Venipuncture 11/25/2014 Venipuncture 03/09/2021 Hemoglobin A1c 02/14/2012 Lipid Panel 01/29/2014 Lipid Panel 02/15/2011 Comp. Metabolic Panel (14) - [id number] 02/04 Comp. Metabolic Panel (14) - [id number] 09/2011 mammogram bilateral breasts, diagnostic, with ultrasound 08/09/2011 LIPID PANEL 08/14/2012 LIPID PANEL 08/07/2012 LIPID PANEL 08/23/2013 HEMOGLOBIN A1C 08/14/2012 HEMOGLOBIN A1C 02/22/2013 BMP WITH GFR 02/14/2012 TSH 03/01/2013 CBC (INCLUDES DIFF/PLT) 08/14/2012 LIPID PANEL 02/14/2012 COMPREHENSIVE METABOLIC PANEL W/eGFR 10/2011 LIPID PANEL 08/09/2011 CBC (INCLUDES DIFF/PLT) 08/09/2011 URINALYSIS REFLEX 08/14/2012 LIPID PANEL 02/08/2012 CBC (INCLUDES DIFF/PLT) 02/08/2012 CMP WITH eGFR 01/29/2014 CMP WITH eGFR 08/14/2012 CMP14+eGFR - [id number] 03/01/2013 CMP14+eGFR - 886884 08/23/2013 TSH 08/23/2013 Mammogram : screening 03/01/2013 CBC 03/01/2013 urinalysis 03/01/2013 Comp. Metabolic Panel (14) - 59765 11/25 LIPID PANEL 11/25/2014 Comp. Metabolic Panel (14) - 79809 06/23 Hemoglobin A1c 06/23/2015 LIPID PANEL 06/23/2015 TSH 06/23/2015 LIPID PANEL 12/22/2015 Comp. Metabolic Panel (12) 12/22/2015 Hemoglobin A1c 07/21/2016 Comp. Metabolic Panel (14) - [id number] 07/21 LIPID PANEL 07/21/2016 TSH 07/21/2016 Hemoglobin A1c 01/20/2017 LIPID PANEL 01/20/2017 Comp. Metabolic Panel (12) 01/20/2017 TSH 07/22/2017 LIPID PANEL 07/22/2017 Comp. Metabolic Panel (12) 07/22/2017 Hemoglobin A1c 01/19/2018 LIPID PANEL 01/19/2018 Comp. Metabolic Panel (12) 01/19/2018 LIPID PANEL 07/21/2018 HEMOGLOBIN A1C 07/21/2018 Comp. Metabolic Panel (12) 07/21/2018 TSH 07/21/2018 CBC (H/H, RBC, INDICES, WBC, PLT) 2018 LIPID PANEL 2019 Comp. Metabolic Panel (12) 2019 Future Test Test Name Order Date Lipid Panel - [id number] 01/22/2020 Comp Metabolic Panel (14) - [id number] 01/21 Hemoglobin A1c - 899838 09/04/2020 TSH - [id number] 09/04/2020 CBC With Differential/Platelet - 495741 09/04/2020 Lipid Panel With LDL/HDL Ratio- 523826 0 09/04/2020 Comp Metabolic Panel (14) - 118718 09/04 Lipid Panel With LDL/HDL Ratio- 010024 1 Comp Metabolic Panel (14) - 604183 03/06 CBC With Differential/Platelet - [id number] 07/17/2021 Lipid Panel With LDL/HDL Ratio- 177648 0 07/17/2021 Comp Metabolic Panel (14) - 695433 07/17 Vitamin B12 and Folate - 845661 07/20/19 23 963912 Iron and TIBC 07/20/2022 Hemoglobin A1c - 612513 07/20/2022 Ferritin, Serum - 983371 07/20/2022 CBC With Differential/Platelet - 874319 07/20/2022 Vitamin D, 25-Hydroxy - 444472 Microalbumin Albumin/Creatinine Ratio,Ur ine - 245608 07/20/2022 Lipid Panel With LDL/HDL Ratio- 972686 0 07/20/2022 Comp Metabolic Panel (14) - 842201 07/20 TSH+T4+T3H 07/20/2022 Medical (General) History Medical History History ICD Code Dyslipidemia Flu vaccine at [facility] 01/2018 flu shot at [facility] 02/2020 Moderna vaccine 2nd 09/01/2020 booster 2nd booster 09/30/2020 flu shot in office 03/16/21 Surgical History Surgery Date(Month/Year) Basal Cells Removed 06/2020
--- OUTSIDE RECORDS SUMMARY | 2024-09-21 13:21 | XMS_ITS | Clinical Summary ---
Author Organization [address] [place] [address] [place] [phone] Phone Care Team Providers Care Post Production Assistant Name Role Phone Lio Lowe MD Primary [...] PM EST Hospital Encounter Radiology Department - [address] [phone] Encounter for screening mammogram for breast cancer Discharge Disposition: Home or Self Care from Last 3 Months Immunizations Name Administration [...] 4 4 Date Outcome GA Total Labor Labor//3rd Weight Sex Type Anes PTL Brianne A1 [...] Vaccines (1 of 2) 01/19/1992 RSV Immunization Adult Patients (1 - 1-dose 75+ series) 2017 Depression Screening 07/01/2023 Falls Risk Assessment 07/01/2023 Medicare Annual Wellness Visit 07/01/2023 Social Influencers of Health Screening 07/01/2023 COVID-19 Vaccine ( season) 2024 03/23/2024, 10/04/2023, 06/07/2023, Additional history exists Hypertension/CHF/CAD Annual BMP Blood Test 09/22/2024 09/23/2023 Cholesterol Screening (Lipid Panel) 09/22/2028 09/23/2023 Osteoporosis Screening (Bone Density Screening) 10/20/2032 10/20/2022 Pneumococcal Vaccine: 50+ Years Completed 09/30/2023 Influenza Vaccine Completed 03/23/2024, , 05/06/2022 HIB [...] age to complete this topic Meningococcal B Vaccine Aged Out No l onger eligible based on patient's age to complete [...] Encounter for screening mammogram for breast cancer ANNUAL BMP BLOOD TEST Routine 09/23/2023 LIPID [...] mammograms ??dated back to 04/04/2020, obtained in [place] became available for comparison. Small nodular opacity in the inferior medial right breast became significantly larger and therefore requires additional evaluation. ??We will contact the patient for the arrangements. -------- ADDENDUM -------- Dictated By: Joelle Bansal Dictated Date: 08/08/2024 09:35 ET Assigned Physician: Joelle Bansal Reviewed and Electronically Signed By: Joelle Bansal Signed Date: 08/08/2024 09:37 ET Workstation ID: [id number] Transcribed By: Self Edit Transcribed Date: 08/08/2024 [...] Additional right breast imaging recommended. Mammo Location: [facility], [address] [place] [address], [id number], . -------- FINAL REPORT -------- Dictated By: Joelle Bansal Dictated Date: 07/26/2024 17:48 ET Assigned Physician: Joelle Bansal Reviewed and Electronically Signed By: Joelle Bansal Signed Date: 07/26/2024 17:53 ET Workstation ID: [id number] Transcribed By: Self Edit Transcribed Date: 07/26/2024 17:48 ET Narrative 07/26/2024 5:53 PM EST Bilateral screening mammogram. CLINICAL: 84 years old, Female, routine annual exam. COMPARISON: Patient stated that she will last mammogram was obtained in [place]. ??She does not remember the facility it [...] Additional right breast imaging recommended. Mammo Location: [facility], [address] [place] [address], [address], . -------- FINAL REPORT -------- Dictated By: Joelle Bansal Dictated Date: 07/26/2024 17:48 ET Assigned Physician: Joelle Bansal Reviewed and Electronically Signed By: Joelle Bansal Signed Date: 07/26/2024 17:53 ET Workstation ID: [id number] Transcribed By: Self Edit Transcribed Date: 07/26/2024 17:48 ET Lio Lowe MD [facility] BI PROCEDURES Edited Result - Final * Annual BMP Blood Test (09/23/2023) [facility] Annual BMP Blood Test abstracted Historical Provider HEALTH MAINTENANCE Final Result * (ABNORMAL) Lipid panel (09/23/2023) [facility] LDL/HDL Ratio 3 0 - 4 Triglycerides 79(A) >=150 mg/dL Cholesterol 177 0 - 200 mg/dL HDL 63 >=40 mg/dL LDL Cholesterol 99 0 - 100 mg/dL Blood Venous blood specimen / Unknown Historical Provider LAB BLOOD ORDERABLES Alison l [...] (World Health Organization Fracture Risk Assessment) The [facility] Department of Internal Medicine recommends using National [...] FRAX. Optional alternative screening schedule based on loly Lofton al., [facility] June 24, 2011 for patients with osteopenia [...] (World Health Organization Fracture Risk Assessment) The [facility] Department of Internal Medicine recommendsusing National Osteoporosis [...] FRAX. Optional alternative screening schedule based on loly Lofton al., [place] 2011 for patients with osteopenia (based on hip BMD T-score) is as follows: * advanced osteopenia (T scores -2.00 to -2.49), BMD testing every year * moderate osteopenia (T scores -1.50 to -1.99), BMD testing every 5years mild osteopenia or normal BMD (T scores -1.50 and higher), BMD testingevery 15 years [place] Damari Emerson MD IMG DXA PROCEDURES Final Result from Last 3 Months or Most Recently Relevant to Health Maintenance Insurance [facility] Member Subscriber Plan / Payer (Ef fective 2022-Present) Name:Alexia Ruelas Relation to Subscriber:Self Name:Alexia Ruelas Payer ID:[id number] Group ID:[id number] Type:Not on file Address: [address] [place] [address] [facility] MEDICARE Member Subscriber Plan / Payer (Ef fective 2022-Present) Name:Alexia Ruelas Relation to Subscriber:Self Name:Alexia Ruelas Payer ID:[id number] Group ID:[id number] Type:Not on file Address: [address] [place] [address] [employer] MED[employer]ARE ADVANTAGE [place] - [place] Care Teams Post Production Assistant Relationship Specialty Start Date End Date Lio Lowe MD PCP - General Internal Medicine 07/25/24
== END 2024-09-21 13:56 | disposition home or self-care (01) ==
LOC: HO.HSMS 12:46
PROVIDERS: PCP Nurse Practitioner Family; Visit Provider Physician Assistant Medical
DX: G47.33 Obstructive sleep apnea (adult) (pediatric) (principal); M25.561 Pain in right knee; M25.562 Pain in left knee; G89.29 Other chronic pain; R41.0 Disorientation, unspecified; H81.10 Benign paroxysmal vertigo, unspecified ear; R53.83 Other fatigue; G47.9 Sleep disorder, unspecified; G47.19 Other hypersomnia; E78.00 Pure hypercholesterolemia, unspecified; M79.644 Pain in right finger(s); F41.9 Anxiety disorder, unspecified; F32.A Depression, unspecified; H81.93 Unspecified disorder of vestibular function, bilateral
CPT/HCPCS: 99204

== ENCOUNTER → 2024-09-21 12:46 | Outpatient (BNVA) | payer MEDICARE, SELFPAY | PROVIDERS: PCP Nurse Practitioner Family; Visit Provider Physician Assistant Medical | DX: G47.33 Obstructive sleep apnea (adult) (pediatric) (principal); G47.19 Other hypersomnia; M25.561 Pain in right knee; M25.562 Pain in left knee; G47.9 Sleep disorder, unspecified; M79.644 Pain in right finger(s); R41.0 Disorientation, unspecified; R53.83 Other fatigue; H81.10 Benign paroxysmal vertigo, unspecified ear; H81.93 Unspecified disorder of vestibular function, bilateral; E78.00 Pure hypercholesterolemia, unspecified; F41.9 Anxiety disorder, unspecified; F32.A Depression, unspecified; G89.29 Other chronic pain | CPT/HCPCS: 99202 ==

== ENCOUNTER 2024-10-23 10:17 | Outpatient (REF) | payer MEDICARE, SELFPAY ==
--- NOTE | ~2024-10-23 | MM_ITS ---
EXAMINATION: DXA BONE DENSITY AXIAL HISTORY: M81.0 - Age-related osteoporosis without current pathological fracture TECHNIQUE: Re[employer] Dual energy absorptiometry (DEXA) of the lumbar spine, total left hip, and femoral neck was performed. COMPARISON: There are no prior studies for comparison. FINDINGS: The bone mineral density of the lumbar spine is 1.114 with a T-score of -0.6, and a Z-score of 1.3. This is indicative of normal bone mineral density. The bone mineral density of the left total hip is 0.882 with a T-score of -1.0, and a Z-score of 1.2. This is indicative of normal bone mineral density. The bone mineral density of the left femoral neck is 0.754 with a T-score of -2.0, and a Z-score of 0.2. This is indicative of osteopenia. FRACTURE RISK: The FRAX index suggests a risk of major osteoporotic fracture of 16.4%, and of hip fracture 5.2%. MM/XR DEXA axial skeleton IMPRESSION: Based on bone mineral density, and according to World Health Organization (WHO) criteria, the diagnosis is consistent with osteopenia. All bone density values are in grams per centimeter squared (g/cm2). Statistically, 68% of repeat scans fall within 1 SD (+/- 0.010 g/cm2 for AP spine L1-L4) and 1 SD (+/- 0.012 g/cm2 for femur total) FRAX is a trademark of the [employer] [place] Metabolic Bone Disease, a World Health Organization (WHO) Collaborating Center. Electronically signed by: Carmelo Estrada MD 10/23/2024 11:22 AM EDT
--- OUTSIDE RECORDS SUMMARY | 2024-10-23 11:28 | XMS_ITS | Clinical Summary ---
Author Organization [address] [place] [address] [place] [phone] Phone Care Team Providers Care Private Duty Lpn Name Role Phone Lio Lowe MD Primary [...] Take 1 Capsule by mouth daily. Active Immunizations Name Administration Dates Next Due Influenza [...] Procedure Name Priority Date/Time Associated Diagnosis Comments ANNUAL BMP BLOOD TEST Routine 09/23/2023 LIPID PANEL Routine 09/23/2023 DXA BONE DENSITY STUDY 1+ SITS AXIAL SKEL Routine 10/20/2022 9:35 AM EDT Encounter for screening for osteoporosis from Last 3 Months or Most Recently Relevant to Health Maintenance Results * Annual BMP Blood Test (09/23/2023) Pathologist [facility] Annual BMP Blood Test abstracted Historical Provider HEALTH MAINTENANCE Final Result * (ABNORMAL) Lipid panel (09/23/2023) Pathologist [facility] LDL/HDL Ratio 3 0 - 4 Triglycerides [...] Organization Fracture Risk Assessment) The [facility] Department of Internal Medicine recommends using National [...] alternative screening schedule based on tamika Lofton., [facility] June 24, 2011 for patients with [...] Organization Fracture Risk Assessment) The [facility] Department of Internal Medicine recommendsusing National Osteoporosis [...] alternative screening schedule based on tamika Lofton., NEJJanuary 2011 for patients with osteopenia (based on hip BMD T-score) is as follows: * advanced osteopenia (T scores -2.00 to -2.49), BMD testing every year * moderate osteopenia (T scores -1.50 to -1.99), BMD testing every 5years mild osteopenia or normal BMD (T scores -1.50 and higher), BMD testingevery 15 years [place] Emerson MD IMG DXA PROCEDURES Final Result from Last 3 Months or Most Recently Relevant to Health Maintenance Insurance [facility] Member Subscriber Plan / Payer (Ef fective 2022-Present) Name:Alexia Ruelas Relation to Subscriber:Self Name:Alexia Ruelas Payer ID:[id number] Group ID:[id number] Type:Not on file Address: [address] [place] [address] [facility] MEDICARE Member Subscriber Plan / Payer (Ef fective 2022-Present) Name:Alexia Ruelas Relation to Subscriber:Self Name:JesseniaBalbinaAlexia Payer ID:[id number] Group ID:[id number] Type:Not on file Address: [address] [place] [phone] [employer] MED[employer] [place]VANTAGE [place] - [place] Care Teams Private Duty Lpn Relationship Specialty Start Date End Date Lio Lowe MD PCP - General Internal Medicine 07/25/24
--- OUTSIDE RECORDS SUMMARY | 2024-10-23 11:28 | XMS_ITS | Patient Health Record ---
Author Organization [employer] [facility] Address [address] [place] [address] Care Team Providers Care Photograph Mounter Name Role Phone NAJMA GERMAN Primary Care Provider Allergies No Known Allergies Medications Medication SIG [...] Status W/U Status Risk Notes Problem Hyperlipidemia (82491510) Hyperlipidemia (E78.5) Active confirmed Problem History of malignant neoplasm of skin (situation) (539470823) Personal history of other malignant neoplasm of skin (Z85.828) Active confirmed Problem Hyperlipidemia (67392725) Hyperlipidemia (E78.5) Active confirmed Problem Senile purpura (44239209) Senile purpura (D69.2) Active confirmed Problem Localized, primary osteoarthritis of the hand (289489146) Osteoarthritis of left hand, unspecified osteoarthritis type (M19.042) Active confirmed Problem Major depression in partial remission (39099931) 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 Metabolic Panel (14) - 51726 02/22 CBC 08/23/2013 CBC 01/29/2014 CBC 02/14/2012 URINALYSIS ([facility] Only) 2013 URINALYSIS ([facility] Only) 2013 Venipuncture 08/07/2012 Venipuncture 02/22/2013 Venipuncture 08/23/2013 Venipuncture 11/25/2014 Venipuncture 01/29/2014 Venipuncture 02/08/2012 Venipuncture 08/09/2011 Venipuncture 06/23/2015 Venipuncture 03/09/2021 Venipuncture 07/08/2021 Venipuncture 01/11/2022 Venipuncture 08/28/2020 Hemoglobin A1c 02/14/2012 Lipid Panel 02/15/2011 Lipid Panel 01/29/2014 Comp. Metabolic Panel (14) - 047507 02/04 Comp. Metabolic Panel (14) - 714574 09/2011 mammogram bilateral breasts, diagnostic, with ultrasound 08/09/2011 LIPID PANEL 08/14/2012 LIPID PANEL 08/07/2012 LIPID PANEL 08/23/2013 HEMOGLOBIN A1C 02/22/2013 HEMOGLOBIN A1C 08/14/2012 BMP WITH GFR 02/14/2012 TSH 03/01/2013 CBC (INCLUDES DIFF/PLT) 08/14/2012 LIPID PANEL 02/14/2012 COMPREHENSIVE METABOLIC PANEL W/eGFR 10/2011 LIPID PANEL 08/09/2011 CBC (INCLUDES DIFF/PLT) 08/09/2011 URINALYSIS REFLEX 08/14/2012 LIPID PANEL 02/08/2012 CBC (INCLUDES DIFF/PLT) 02/08/2012 CMP WITH eGFR 01/29/2014 CMP WITH eGFR 08/14/2012 CMP14+eGFR - 360157 03/01/2013 CMP14+eGFR - 096355 08/23/2013 TSH 08/23/2013 Mammogram : screening 03/01/2013 CBC 03/01/2013 urinalysis 03/01/2013 Comp. Metabolic Panel (14) - 22582 11/25 LIPID PANEL 11/25/2014 Comp. Metabolic Panel (14) - 68449 06/23 Hemoglobin A1c 06/23/2015 LIPID PANEL 06/23/2015 TSH 06/23/2015 LIPID PANEL 12/22/2015 Comp. Metabolic Panel (12) 12/22/2015 Hemoglobin A1c 07/21/2016 Comp. Metabolic Panel (14) - 53390 07/21 LIPID PANEL 07/21/2016 TSH 07/21/2016 Hemoglobin [...] Test Name Order Date Lipid Panel - 094975 01/22/2020 Comp Metabolic Panel (14) - 602011 01/21 Hemoglobin A1c - 805398 09/04/2020 TSH - 842277 09/04/2020 CBC With Differential/Platelet - 382306 09/04/2020 Lipid Panel With LDL/HDL Ratio- 281293 0 09/04/2020 Comp Metabolic Panel (14) - 918868 09/04 Lipid Panel With LDL/HDL Ratio- 803888 1 Comp Metabolic Panel (14) - 745493 03/06 CBC With Differential/Platelet - 782133 07/17/2021 Lipid Panel With LDL/HDL Ratio- 639429 0 07/17/2021 Comp Metabolic Panel (14) - 694133 07/17 Vitamin B12 and Folate - 818757 07/20/19 23 066400 Iron and TIBC 07/20/2022 Hemoglobin A1c - 725929 07/20/2022 Ferritin, Serum - 518332 07/20/2022 CBC With Differential/Platelet - 572510 07/20/2022 Vitamin D, 25-Hydroxy - 220262 Microalbumin Albumin/Creatinine Ratio,Ur ine - 321425 07/20/2022 Lipid Panel With LDL/HDL Ratio- 881169 0 07/20/2022 Comp Metabolic Panel (14) - 043368 07/20 TSH+T4+T3H 07/20/2022 Medical (General) History Medical History History ICD Code Dyslipidemia Flu vaccine at [facility] 01/2018 flu shot at [facility] 02/2020 Moderna vaccine 2nd 09/01/2020 booster 2nd booster 09/30/2020 flu shot in office 03/16/21 Surgical History Surgery Date(Month/Year) Basal Cells Removed 06/2020
== END 2024-10-23 10:18 | disposition home or self-care (01) ==
LOC: HO.MAMMO 10:17
PROVIDERS: Visit Provider Nurse Practitioner Family
DX: M81.0 Age-related osteoporosis without current pathological fracture (principal); M85.80 Other specified disorders of bone density and structure, unspecified site
CPT/HCPCS: 77080

== ENCOUNTER → 2024-10-23 10:30 | Outpatient (BNV) | payer MEDICARE, SELFPAY | PROVIDERS: Visit Provider Radiology Diagnostic Radiology | DX: E28.39 Other primary ovarian failure (principal) | CPT/HCPCS: 77080 ==

== ENCOUNTER 2024-10-31 07:59 | Outpatient (REF) | payer MEDICARE, SELFPAY ==
--- NOTE | ~2024-10-31 | US_ITS ---
EXAMINATION: MM DIAGNOSTIC DIGITAL BREAST TOMOSYNTHESIS, RIGHT Limited right breast ultrasound. CLINICAL INFORMATION: Call back from screening from outside institution for circumscribed oval mass in the lower inner right breast. COMPARISON: Mammography: Priors on PACS in outside institution mammogram. TECHNIQUE: Digital breast tomosynthesis is performed in both the craniocaudal and mediolateral oblique views along with computer-aided detection (CAD). Synthesized 2D images are generated from the tomosynthesis. FINDINGS: There are scattered areas of fibroglandular density (ACR BI-RADS breast composition Category b). Circumscribed oval mass in the lower inner breast persists on additional imaging projections. No suspicious calcifications or other abnormal findings. Targeted color Doppler ultrasound demonstrates a superficial subdermal hyperechoic oval circumscribed parallel mass at 3:00 2 cm from the nipple consistent with a lipoma measuring 6 x 6 x 2 mm which correlates with the mammographic circumscribed oval mass and is benign. US/US breast RT limited mamm only IMPRESSION: Lipoma at 3:00 2 cm from the nipple. Benign. ASSESSMENT: BI-RADS BI-RADS 2 - Benign Findings RECOMMENDATION: 1 year F/U Results were provided to the patient at time of visit by the technologist. This patient's information was entered into a reminder system with a target due date for their next mammogram. Electronically signed by: Marion Marcus DO 10/31/2024 11:14 AM EDT
--- OUTSIDE RECORDS SUMMARY | 2024-10-31 08:02 | XMS_ITS | Clinical Summary ---
Author Organization [address] [place] [address] [place] [phone] Phone Care Team Providers Care Template Clerk Name Role Phone Lio Lowe MD Primary [...] * Annual BMP Blood Test (09/23/2023) Pathologist [facility] Annual BMP Blood Test abstracted Historical Provider HEALTH MAINTENANCE Final Result * (ABNORMAL) Lipid panel (09/23/2023) Pathologist [facility] LDL/HDL Ratio 3 0 - [...] (World Health Organization Fracture Risk Assessment) The [facility] Department of Internal Medicine recommends [...] alternative screening schedule based on tamika Lofton., [facility] June 24, 2011 for patients with osteopenia [...] (World Health Organization Fracture Risk Assessment) The [facility] Department of Internal Medicine recommendsusing [...] Most Recently Relevant to Health Maintenance Insurance [facility] Member Subscriber Plan / Payer (Ef fective 2022-Present) Name:Alexia Ruelas Relation to Subscriber:Self Name:Alexia Ruelas Payer ID:[id number] Group ID:[id number] Type:Not on file Address: [address] [place] [address] [facility] MEDICARE Member Subscriber Plan / Payer (Ef fective 2022-Present) Name:Alexia Ruelas Relation to Subscriber:Self Name:JesseniaBalbinaAlexia Payer ID:[id number] Group ID:[id number] Type:Not on file Address: [address] [place] [address] [employer] MEDICARE ADVANTAGE [place] - [place] Care Teams Template Clerk Relationship Specialty Start Date End Date Lio Lowe MD PCP - General Internal Medicine 07/25/24
== END 2024-10-31 08:00 | disposition home or self-care (01) ==
LOC: HO.MAMMO 07:59
PROVIDERS: PCP Nurse Practitioner Family; Visit Provider Nurse Practitioner Family
DX: R92.8 Other abnormal and inconclusive findings on diagnostic imaging of breast (principal)
CPT/HCPCS: 76642; 77061; 77065

== ENCOUNTER → 2024-10-31 08:30 | Outpatient (BNV) | payer MEDICARE, SELFPAY | PROVIDERS: PCP Nurse Practitioner Family; Visit Provider Internal Medicine | DX: D24.1 Benign neoplasm of right breast (principal) | CPT/HCPCS: 76642; 77065; G0279 ==

== ENCOUNTER 2024-11-21 08:21 | Outpatient (REF) | payer MEDICARE, SELFPAY ==
--- OUTSIDE RECORDS SUMMARY | 2024-11-21 08:40 | XMS_ITS | Clinical Summary ---
Author Organization [address] [place] [address] [place] [phone] Phone Care Team Providers Care Ela Teacher Name Role Phone Lio Lowe MD Primary [...] * Annual BMP Blood Test (09/23/2023) Pathologist [facility] Annual BMP Blood Test abstracted Historical Provider HEALTH MAINTENANCE Final Result * (ABNORMAL) Lipid panel (09/23/2023) Pathologist [facility] LDL/HDL Ratio 3 0 - 4 Triglycerides [...] 10/20/2022 12:40 PM EDT BONE DENSITY (DEXA) Lumbar Spine T-score is [...] (World Health Organization Fracture Risk Assessment) The [facility] Department of Internal Medicine recommends using National [...] alternative screening schedule based on tamika Lofton., [facility] June 24, 2011 for patients [...] (World Health Organization Fracture Risk Assessment) The [facility] Department of Internal Medicine recommendsusing National Osteoporosis [...] Most Recently Relevant to Health Maintenance Insurance [facility] Member Subscriber Plan / Payer (Ef fective 2022-Present) Name:Alexia Ruelas Relation to Subscriber:Self Name:Alexia uRelas Payer ID:[id number] Group ID:[id number] Type:Not on file Address: [address] [place] [address] [facility] MEDICARE Member Subscriber Plan / Payer (Ef fective 2022-Present) Name:Alexia Ruelas Relation to Subscriber:Self Name:Alexia Ruelas Payer ID:[id number] Group ID:[id number] Type:Not on file Address: [address] [place] [address] [employer] MED[employer]ARE [place]AGE [place] - [place] Care Teams Ela Teacher Relationship Specialty Start Date End Date Lio Lowe MD PCP - General Internal Medicine 07/25/24
[2024-11-21 11:42] LABS: Appearance Urine Clear; Color Urine Yellow; Glucose Urine UA Negative (Negative); Leukocyte Esterase Urine Small (1+) (Negative); Nitrite Urine Negative (Negative); PH 6.5 (5.0-9.0); Specific Gravity - Urine <= 1.005 (1.005-1.025); UMIC TRIGGER UACC YES; Urine Blood Small (1+) (Negative); Urine Ketones Negative (Negative); Urine Protein Negative (Neg-Trace)
[2024-11-21 11:48] LABS: Bacteria Urine None Seen (None Seen); Hyaline Casts Urine 0-2 /LPF (0-2); UACC Culture Trigger YES
[2024-11-21 11:59] LABS: Cholesterol 169 mg/dL (<200); HDL Cholesterol 54 mg/dL (>40); LDL Cholesterol Calculated 93 mg/dL (<100); Triglycerides 110 mg/dL (<150)
[2024-11-21 12:20] LABS: Creatinine Urine 65.44 mg/dL; Microalbum/Creatinine Ratio Ur 50.4 ug/mg cr (<30)
== END 2024-11-21 08:22 | disposition home or self-care (01) ==
LOC: HO.WFDLDS 08:21
PROVIDERS: Visit Provider Nurse Practitioner Family
DX: Z00.00 Encounter for general adult medical examination without abnormal findings (principal); E78.00 Pure hypercholesterolemia, unspecified; R80.9 Proteinuria, unspecified
CPT/HCPCS: 36415; 80061; 81001; 82043; 82570; 87086

== ENCOUNTER → 2024-11-29 08:53 | Outpatient (REF) | payer MEDICARE, SELFPAY ==
--- OUTSIDE RECORDS SUMMARY | 2024-11-29 09:33 | XMS_ITS | Clinical Summary ---
Author Organization [address] [place] [address] [place] [phone] Phone Care Team Providers Care Cattle Knocker Name Role Phone Lio Lowe MD Primary [...] Annual BMP Blood Test (09/23/2023) Pathologist [facility] Annual BMP Blood Test abstracted Historical Provider HEALTH MAINTENANCE Final Result * (ABNORMAL) Lipid panel (09/23/2023) Pathologist [facility] LDL/HDL Ratio 3 0 - 4 Triglycerides [...] (World Health Organization Fracture Risk Assessment) The [facility] Department of Internal Medicine recommends using [...] alternative screening schedule based on tamika Lofton., [facility] June 24, 2011 [...] (World Health Organization Fracture Risk Assessment) The [facility] Department of Internal Medicine recommendsusing National [...] Most Recently Relevant to Health Maintenance Insurance [facility] Member Subscriber Plan / Payer (Ef fective 2022-Present) Name:Alexia Ruelas Relation to Subscriber:Self Name:Alexia Ruelas Payer ID:[id number] Group ID:[id number] Type:Not on file Address: [address] [place] [address] [facility] MEDICARE Member Subscriber Plan / Payer (Ef fective 2022-Present) Name:Alexia Ruelas Relation to Subscriber:Self Name:Alexia Ruelas Payer ID:[id number] Group ID:[id number] Type:Not on file Address: [address] [place] [address] [employer] MED[employer]ARE [place] - [place] Care Teams Cattle Knocker Relationship Specialty Start Date End Date Lio Lowe MD PCP - General Internal Medicine 07/25/24
== END ==
LOC: HO.SL 08:53
PROVIDERS: PCP Nurse Practitioner Family; Visit Provider Physician Assistant Medical
DX: G47.30 Sleep apnea, unspecified (principal); G47.19 Other hypersomnia
CPT/HCPCS: 95806

== ENCOUNTER → 2024-11-29 22:00 | Outpatient (BNV) | payer MEDICARE, SELFPAY | PROVIDERS: PCP Nurse Practitioner Family; Visit Provider Psychiatry & Neurology Neurology | DX: G47.33 Obstructive sleep apnea (adult) (pediatric) (principal) | CPT/HCPCS: 95806 ==

== ENCOUNTER 2024-12-27 12:58 | Outpatient (AMB) | payer MEDICARE, SELFPAY ==
--- NOTE | 2024-12-27 13:10 | A.OFFVIS_ITS ---
Vital Signs 12/27/24 13:11 Height 5 ft 2 in Weight 139 lb 2 oz BMI 25.4 Pulse 91 Pulse Source Pulse Oximeter Pulse Oximetry (%) 96 Oxygen Delivery Method Room Air Intake Visit Reasons: 3 mnts f/u Intake Note: Patient presents follow up CANDY. Rheum booked 06/11/25, HST in chart(AHI-39, SHAKILA 72%. APAP 5-20cm). Would like a copy of sleep study. Accompanied by: Daughter Allergies No Known Allergies Allergy (Verified 12/28/24 12:40) HPI Comments Details: 84-yr-old female presents for follow-up visit of sleep apnea. Patient was pr eviously followed by Milan SPARROW on 09/21/2024. Patient is accompanied by her daughter and family. Since the last visit, pt underwent 11/29/2024 HST which revealed AHI 38.7/hr w/ O2 shakila 72 % w/ SpO2 < 90% x's 163 min, SpO2 < 88% x's 46 min, and average SpO2 90 %, mild snoring. Average heart rate 65 beats per minute, with lowest and highest heart rate during sleep of 54 and 91 beats per minute, respectively. Highest heart rate during total time in bed 255 beats per minute. Since, an order was sent for APAP therapy, which patient is about to start soon. Patient has also been advised to undergo a follow-up in-lab PAP titration study to identify optimal PAP treatment settings. Patient is open to trying PAP therapy as well as having a follow-up in-lab PAP titration study. Patient's daughter is familiar with PAP therapy, implants were closely with patient to acclimate her to using the device. Patient continues to have short-term memory lapses, and her family is supportive. [facility] Medical History Shingles Depression Anxiety Memory loss High cholesterol Surgical History Hx of tonsillectomy Family History Father Alcohol abuse Mother Alcohol abuse Diabetes Son Alcohol abuse Daughter FH: mental illness Social History Housing: House Patient Tobacco Use Status: Never used Tobacco e-Cigarette/Vaping Use: Never Used Second Hand Smoke Exposure: No service: No Current occupational status: retired Cognitive needs: No Hearing needs: No Vision needs: No Physical Exam Vital Signs: Last Vital Signs Pulse 91 12/27/24 13:11 Pulse Ox 96 12/27/24 13:11 Oxygen Delivery Method Room Air 12/27/24 13:11 BMI result Body Mass Index 25.4 Const General: no acute distress Resp Effort & Inspection: normal respiratory effort and able to speak in complete sentences Neuro Other: Patient alert and oriented with mild short-term memory lapses. General: moves all extremities Cranial nerves: Yes CN's II-XII intact bilaterally Gait exam (Neuro): Normal gait present Psych Appearance: grossly normal Mental Status: mental status grossly normal Speech and movement: Clear speech present Attitude: cooperative Assessment & Plan Assessment & Plan (1) Severe obstructive sleep apnea: Code(s): G47.33 - Obstructive sleep apnea (adult) (pediatric) Category: Medical (2) Nocturnal hypoxemia: Code(s): G47.34 - Idiopathic sleep related nonobstructive alveolar hypoventilation Category: Medical Plan For CANDY: Reviewed results of sleep study report, results c/w sleep apnea. Complication a/w untreated CANDY, include but not limited to CV, metabolic, and cognitive dysfunction. Thus, pt advised to start PAP tx as ordered. Start APAP 5-20 cmH2O w/ EPR set to need, nightly > 4 hours, as pt continues to have good clinical effect from use. * Patient may benefit from sleeping with her head elevated, such as using a sleep apnea wedge pillow * Clean CPAP machine and supplies routinely. * Change CPAP supplies routinely. * Use distilled water in CPAP water reservoir. * Pt to contact us or respiratory company with any questions or concerns. In-lab PAP titration sleep study as ordered by Milan SPARROW. however, if patient is unable to do this, then patient should undergo nocturnal pulse oximetry study x1 night on room air while using APAP therapy to assess effectiveness of PAP therapy on nocturnal hypoxemia and heart rate. Future considerations: Pulmonary consult For cognitive difficulties: Complete MMSE/[place] once patient has started and consistently using PAP therapy with good reduction in residual sleep apnea and optimization of nocturnal hypoxemia. Pt to follow-up in 3 months or sooner prn. Coding Level of Care Code Est Pt Level 3 (91444) Diagnoses Severe obstructive sleep apnea G47.33 Nocturnal hypoxemia G47.34
--- OUTSIDE RECORDS SUMMARY | 2024-12-27 13:10 | XMS_ITS | Clinical Summary ---
Author Organization [address] [place] [address] [place] [phone] Phone Care Team Providers Care Theatrical Performer Name Role Phone Lio Lowe MD Primary [...] Patients (1 - 1-dose 75+ series) 2017 Falls Risk Assessment 07/01/2023 Medicare Annual Wellness Visit 07/01/2023 Social Influencers of Health Screening 07/01/2023 Depression Screening 06/06/2024 COVID-19 Vaccine ( season) 2024 03/23/2024, 10/04/2023, 06/07/2023, Additional history exists Hypertension/CHF/CAD Annual BMP Blood Test 09/22/2024 09/23/2023 Influenza Vaccine (#1) 2025 , 03/30/2023, 05/06/2022 Cholesterol Screening (Lipid Panel) 09/22/2028 09/23/2023 Osteoporosis Screening (Bone Density Screening) 10/20/2032 10/20/2022 Pneumococcal Vaccine: 50+ Years Completed 09/30/2023 HIB Vaccines Aged Out No longer eligi [...] * Annual BMP Blood Test (09/23/2023) Pathologist [facility] Annual BMP Blood Test abstracted Historical Provider HEALTH MAINTENANCE Final Result * (ABNORMAL) Lipid panel (09/23/2023) [facility] LDL/HDL Ratio 3 0 - 4 [...] (World Health Organization Fracture Risk Assessment) The [facility] Department of Internal Medicine recommends using National [...] FRAX. Optional alternative screening schedule based on atmika Lofton., [facility] June 24, 2011 for patients [...] (World Health Organization Fracture Risk Assessment) The [facility] Department of Internal Medicine recommendsusing National Osteoporosis [...] Most Recently Relevant to Health Maintenance Insurance [facility] Member Subscriber Plan / Payer (Ef fective 2022-Present) Name:Alexia Ruelas Relation to Subscriber:Self Name:Alexia Ruelas Payer ID:[id number] Group ID:PMA Type:Not on file Address: [facility] [address] [place] [address] [facility] MEDICARE Member Subscriber Plan / Payer (Ef fective 2022-Present) Name:Alexia Ruelas Relation to Subscriber:Self Name:Alexia Ruelas Payer ID:[id number] Group ID:[id number] Type:Not on file Address: [address] [place] [address] [employer] MED[employer]ARE [place]AGE [place] - [place] Care Teams Theatrical Performer Relationship Specialty Start Date End Date Lio Lowe MD PCP - General Internal Medicine 07/25/24
--- OUTSIDE RECORDS SUMMARY | 2024-12-27 13:10 | XMS_ITS | Patient Health Record ---
Author Organization [facility] Address [address] [place] [address] Care Team Providers Care Inspector Clip [employer] Sunglasses Name Role Phone NAJMA GERMAN Primary Care [...] Status W/U Status Risk Notes Problem Hyperlipidemia (15425469) Hyperlipidemia (E78.5) Active confirmed Problem History of malignant neoplasm of skin (situation) (361948306) Personal history of other malignant neoplasm of skin (Z85.828) Active confirmed Problem Hyperlipidemia (78619965) Hyperlipidemia (E78.5) Active confirmed Problem Senile purpura (76926303) Senile purpura (D69.2) Active confirmed Problem Osteoarthritis o f left hand, unspecified osteoarthritis type (M19.042) Active confirmed Problem Major depression in partial remission (80664250) 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 Metabolic Panel (14) - 91518 02/22 CBC 08/23/2013 CBC 01/29/2014 CBC 02/14/2012 URINALYSIS ([facility] Only) 2013 URINALYSIS ([facility]) 2013 Venipuncture 08/07/2012 Venipuncture 02/22/2013 Venipuncture 02/08/2012 Venipuncture 03/09/2021 Venipuncture 08/28/2020 Venipuncture 08/23/2013 Venipuncture 11/25/2014 Venipuncture 01/29/2014 Venipuncture 06/23/2015 Venipuncture 08/09/2011 Venipuncture 07/08/2021 Venipuncture 01/11/2022 Hemoglobin A1c 02/14/2012 Lipid Panel 02/15/2011 Lipid Panel 01/29/2014 Comp. Metabolic Panel (14) - 419117 02/04 Comp. Metabolic Panel (14) - 551221 09/2011 mammogram bilateral breasts, diagnostic, with ultrasound 08/09/2011 LIPID PANEL 08/14/2012 LIPID PANEL 08/07/2012 LIPID PANEL 08/23/2013 HEMOGLOBIN A1C 02/22/2013 HEMOGLOBIN A1C 08/14/2012 BMP WITH GFR 02/14/2012 TSH 03/01/2013 CBC (INCLUDES DIFF/PLT) 08/14/2012 LIPID PANEL 02/14/2012 COMPREHENSIVE METABOLIC PANEL W/eGFR 10/2011 LIPID PANEL 08/09/2011 CBC (INCLUDES DIFF/PLT) 08/09/2011 URINALYSIS REFLEX 08/14/2012 LIPID PANEL 02/08/2012 CBC (INCLUDES DIFF/PLT) 02/08/2012 CMP WITH eGFR 08/14/2012 CMP WITH eGFR 01/29/2014 CMP14+eGFR - 357601 08/23/2013 CMP14+eGFR - 661414 03/01/2013 TSH 08/23/2013 Mammogram : screening 03/01/2013 CBC 03/01/2013 urinalysis 03/01/2013 Comp. Metabolic Panel (14) - 56813 11/25 LIPID PANEL 11/25/2014 Comp. Metabolic Panel (14) - 32407 06/23 Hemoglobin A1c 06/23/2015 LIPID PANEL 06/23/2015 TSH 06/23/2015 LIPID PANEL 12/22/2015 Comp. Metabolic Panel (12) 12/22/2015 Hemoglobin A1c 07/21/2016 Comp. Metabolic Panel (14) - 79493 07/21 LIPID PANEL 07/21/2016 TSH 07/21/2016 Hemoglobin [...] Test Name Order Date Lipid Panel - 558766 01/22/2020 Comp Metabolic Panel (14) - 076654 01/21 Hemoglobin A1c - 927371 09/04/2020 TSH - 902169 09/04/2020 CBC With Differential/Platelet - 585605 09/04/2020 Lipid Panel With LDL/HDL Ratio- 158859 0 09/04/2020 Comp Metabolic Panel (14) - 326809 09/04 Lipid Panel With LDL/HDL Ratio- 619612 1 Comp Metabolic Panel (14) - 287848 10/01 /2021 CBC With Differential/Platelet - 471279 07/17/2021 Lipid Panel With LDL/HDL Ratio- 382433 0 07/17/2021 Comp Metabolic Panel (14) - 243130 07/17 Vitamin B12 and Folate - 946733 07/20/19 23 515404 Iron and TIBC 07/20/2022 Hemoglobin A1c - 330795 07/20/2022 Ferritin, Serum - 447190 07/20/2022 CBC With Differential/Platelet - 07/20/2022 Vitamin D, 25-Hydroxy - 430282 Microalbumin Albumin/Creatinine Ratio,Ur ine - 210491 07/20/2022 Lipid Panel With LDL/HDL Ratio- 118785 0 07/20/2022 Comp Metabolic Panel (14) - 662922 07/20 TSH+T4+T3H 07/20/2022 Medical (General) History Medical History History ICD Code Dyslipidemia Flu vaccine at [facility] 01/2018 flu shot at [facility] 02/2020 Moderna vaccine 2nd 09/01/2020 booster 2nd booster 09/30/2020 flu shot in office 03/16/21 Surgical History Surgery Date(Month/Year) Basal Cells Removed 06/2020
[2024-12-27 13:11] VITALS: PULSE 91; O2SAT 96; BMI 25.4
== END 2024-12-27 13:54 | disposition home or self-care (01) ==
PROVIDERS: PCP Nurse Practitioner Family; Visit Provider Nurse Practitioner Family
DX: G47.33 Obstructive sleep apnea (adult) (pediatric) (principal); G47.34 Idiopathic sleep related nonobstructive alveolar hypoventilation
CPT/HCPCS: 99213

== ENCOUNTER → 2024-12-27 12:58 | Outpatient (BNVA) | payer MEDICARE, SELFPAY | PROVIDERS: PCP Nurse Practitioner Family; Visit Provider Physician Assistant Medical | DX: G47.33 Obstructive sleep apnea (adult) (pediatric) (principal); G47.34 Idiopathic sleep related nonobstructive alveolar hypoventilation | CPT/HCPCS: 99212 ==

== ENCOUNTER 2024-12-28 12:23 | Outpatient (AMB) | payer MEDICARE, SELFPAY ==
--- OUTSIDE RECORDS SUMMARY | 2024-12-28 12:26 | XMS_ITS | Clinical Summary ---
Author Organization [address] [place] [address] [place] [id number] Phone Care Team Providers Care Hearing Therapy Teacher Name Role Phone Lio Lowe MD [...] * Annual BMP Blood Test (09/23/2023) Pathologist [facility] Annual BMP Blood Test abstracted Historical Provider HEALTH MAINTENANCE Final Result * (ABNORMAL) Lipid panel (09/23/2023) [facility] LDL/HDL Ratio 3 0 - 4 [...] (World Health Organization Fracture Risk Assessment) The [facility] Department of Internal Medicine recommends using National [...] alternative screening schedule based on tamika Lofton., [facility] June 24, 2011 for patients [...] (World Health Organization Fracture Risk Assessment) The [facility] Department of Internal Medicine recommendsusing National Osteoporosis [...] Most Recently Relevant to Health Maintenance Insurance [facility] Member Subscriber Plan / Payer (Ef fective 2022-Present) Name:Alexia Ruelas Relation to Subscriber:Self Name:Alexia Ruelas Payer ID:[id number] Group ID:[id number] Type:Not on file Address: [facility] [address] [phone] [facility] MEDICARE Member Subscriber Plan / Payer (Ef fective 2022-Present) Name:Alexia Ruelas Relation to Subscriber:Self Name:Alexia Ruelas Payer ID:[id number] Group ID:[id number] Type:Not on file Address: [address] [place] [id number] [employer] MED[employer]ARE ADVANTAGE [place]ID [place] Care Teams Hearing Therapy Teacher Relationship Specialty Start Date End Date Lio Lowe MD PCP - General Internal Medicine 07/25/24
--- OUTSIDE RECORDS SUMMARY | 2024-12-28 12:27 | XMS_ITS | Patient Health Record ---
Author Organization [facility] Address [address] [place] [address] Care Team Providers Care Bull Ladle Tender Name Role Phone NAJMA GERMAN Primary Care [...] Status W/U Status Risk Notes Problem Hyperlipidemia (46644981) Hyperlipidemia (E78.5) Active confirmed Problem History of malignant neoplasm of skin (situation) (271012291) Personal history of other malignant neoplasm of skin (Z85.828) Active confirmed Problem Hyperlipidemia (79038421) Hyperlipidemia (E78.5) Active confirmed Problem Senile purpura (05862701) Senile purpura (D69.2) Active confirmed Problem Localized, primary osteoarthritis of the hand (828180424) Osteoarthritis of left hand, unspecified osteoarthritis type (M19.042) Active confirmed Problem Major depression in partial remission (28760571) 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 Metabolic Panel (14) - 96422 02/22 CBC 08/23/2013 CBC 01/29/2014 CBC 02/14/2012 UR[facility]ALYSIS ([facility]) 2013 URINALYSIS ([facility]) 2013 Venipuncture 01/29/2014 Venipuncture 08/23/2013 Venipuncture 02/08/2012 Venipuncture 08/07/2012 Venipuncture 02/22/2013 Venipuncture 11/25/2014 Venipuncture 06/23/2015 Venipuncture 08/09/2011 Venipuncture 08/28/2020 Venipuncture 01/11/2022 Venipuncture 03/09/2021 Venipuncture 07/08/2021 Hemoglobin A1c 02/14/2012 Lipid Panel 02/15/2011 Lipid Panel 01/29/2014 Comp. Metabolic Panel (14) - 075747 02/04 Comp. Metabolic Panel (14) - 776806 09/2011 mammogram bilateral breasts, diagnostic, with ultrasound [...] 01/29/2014 CMP WITH eGFR 08/14/2012 CMP14+eGFR - 715502 03/01/2013 CMP14+eGFR - 238858 08/23/2013 TSH 08/23/2013 Mammogram : screening 03/01/2013 CBC 03/01/2013 urinalysis 03/01/2013 Comp. Metabolic Panel (14) - 31206 11/25 LIPID PANEL 11/25/2014 Comp. Metabolic Panel (14) - 66897 06/23 Hemoglobin A1c 06/23/2015 LIPID PANEL 06/23/2015 TSH 06/23/2015 LIPID PANEL 12/22/2015 Comp. Metabolic Panel (12) 12/22/2015 Hemoglobin A1c 07/21/2016 Comp. Metabolic Panel (14) - 69262 07/21 LIPID PANEL 07/21/2016 TSH 07/21/2016 Hemoglobin [...] Test Name Order Date Lipid Panel - 054356 01/22/2020 Comp Metabolic Panel (14) - 267869 01/21 Hemoglobin A1c - 854168 09/04/2020 TSH - 428799 09/04/2020 CBC With Differential/Platelet - 810729 09/04/2020 Lipid Panel With LDL/HDL Ratio- 856056 0 09/04/2020 Comp Metabolic Panel (14) - 233717 09/04 Lipid Panel With LDL/HDL Ratio- 519613 1 Comp Metabolic Panel (14) - 304267 03/06 CBC With Differential/Platelet - 900564 07/17/2021 Lipid Panel With LDL/HDL Ratio- 809215 0 07/17/2021 Comp Metabolic Panel (14) - 908820 07/17 Vitamin B12 and Folate - 704390 07/20/19 23 838388 Iron and TIBC 07/20/2022 Hemoglobin A1c - 274247 07/20/2022 Ferritin, Serum - 269799 07/20/2022 CBC With Differential/Platelet - 095930 07/20/2022 Vitamin D, 25-Hydroxy - 591582 Microalbumin Albumin/Creatinine Ratio,Ur ine - 075285 07/20/2022 Lipid Panel With LDL/HDL Ratio- 176021 0 07/20/2022 Comp Metabolic Panel (14) - 758726 07/20 TSH+T4+T3H 07/20/2022 Medical (General) History Medical History History ICD Code Dyslipidemia Flu vaccine at [facility] [place] 01/[address] [facility] [place] 02/2020 Moderna vaccine 2nd 09/01/2020 booster 2nd booster 09/30/2020 flu shot in office 03/16/21 Surgical History Surgery Date(Month/Year) Basal Cells Removed 06/2020
--- NOTE | 2024-12-28 12:36 | MHC.PC.OV ---
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 Is last menstrual period known: No Post menopausal: No Patient : No Allergies No Known Allergies Allergy (Verified 12/28/24 12:40) Tobacco use date assessed: 12/28/24 Fall risk assessment: No Falls in past year Last assessed Fall Risk: 12/28/24 Dental Screening Dental Screen Date: 12/28/24 Did you have a dental visit in the last 12 months?: No Did you have a dental problem in the last 6 months where you did not have access to dental care?: No Was dental information given to patient?: No HPI HPI Comments History of Present Illness Details 84-year-old female presents for hyperlipidemia, normoystic anemia, microalbuminemia, anxiety, and depression follow-up. She admits to taking her medications as prescribed without adverse reactions. According to her daughter, the patient often feels depressed because she is no longer able to be the independent caregiver she was. Her anxiety level is generally mild-moderate and depression is generally mild. Her daughter believes the patient does not sleep adequately at night. 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 She is followed by [facility] sleep medicine. She reports inconsistency with adequate hydration. She notes that she has been making healthy lifestyle changes. [facility] Medical History Shingles Depression Anxiety Memory loss High cholesterol Surgical History Hx of tonsillectomy Family History Father Alcohol abuse Mother Alcohol abuse Diabetes Son Alcohol abuse Daughter FH: mental illness Social History Housing: House Patient Tobacco Use Status: Never used Tobacco e-Cigarette/Vaping Use: Never Used Second Hand Smoke Exposure: No service: No Current occupational status: retired Cognitive needs: No Hearing needs: No Vision needs: No Questionnaire PHQ-9 Over the last 2 weeks, how often have you been bothered by any of the following problems? 1. Little interest or pleasure in doing things: several days 2. Feeling down, depressed, or hopeless: several days 3. Trouble falling or staying asleep, or sleeping too much: more than half the days 4. Feeling tired or having little energy: more than half the days 5. Poor appetite or overeating: not at all 6. Feeling bad about yourself - or that you are a failure or have let yourself or your family down: more than half the days 7. Trouble concentrating on things, such as reading the newspaper or watching television: more than half the days 8. Moving or speaking so slowly that other people could have noticed. Or the opposite - being so fidgety or restless that you have been moving around a lot more than usual: not at all 9. Thoughts that you would be better off or of hurting yourself in some way: not at all Total score: 10 Depression Screening Interpretation: Positive Depression Screening Follow-up: Existing condition and In treatment Depression Screening Done: Yes 34715 - PHQ-9 Billing: Yes Source: Developed by Drs. Carmelo Mcduffie, Holly Batista, Lauri Quigley and colleagues, with an educational madhuri from [employer]. Thrive Questionnaire Date Thrive assessed: 08/13/24 I am a: Patient What is your living situation today?: I have a steady place to live Within the past 12 months, did the food you bought not last and you didn't have the money to get more?: Never true Within the past 12 months, did you worry whether your food would run out before you got money to buy more?: Never true Do you have trouble paying for medicines?: No Do you have trouble getting transportation to medical appointments?: No Do you have trouble paying your heating and electricity bill?: No Do you have trouble taking care of your child, family member or friend?: No Do you have trouble with day-to-day activities such as bathing, preparing meals, shopping, managing finances, etc.?: No Are you currently unemployed and looking for a job?: No Are you interested in more education?: No Please select the resources that you would like help with: None Currently or been in a relationship where the following occur: No concerns reported THRIVE Score: 0 JORGITO-7 AMB Questionnaire JORGITO-7 Date JORGITO - 7 assessed: 12/28/24 Feeling nervous, anxious, or on edge: 2 = More than half the days Not being able to stop or control worryin = Nearly every day Worrying too much about different things: 3 = Nearly every day Trouble relaxin = Nearly every day Being so restless that it is hard to sit still: 0 = Not at all Becoming easily annoyed or irritable: 0 = Not at all Feeling afraid as if something awful might happen: 3 = Nearly every day Total JORGITO-7 score (0-4 normal; 5-9 mild; 10-14 moderate; 15-21 severe): 14 Source: Developed by Drs. Carmelo Mcduffie, Holly Batista, Lauri Quigley and colleagues, with an educational madhuri from [employer]. JORGITO-7 Assessment Billing JORGITO-7 Assessment Tool: JORGITO-7 Assessment 24238 Review of Systems Const Details: Const Denies chills, Denies fatigue, Denies fever(s), Denies headache(s) and Denies weakness ENT Denies dizziness and Denies headache(s) Card Denies chest pain, Denies lightheadedness, Denies dyspnea and Denies other (Palpitations) Resp Denies cough, Denies dyspnea, Denies wheezing and Denies other ( shortness of breath) GI Denies abdominal pain, Denies melena, Denies hematochezia, Denies change in bowel habits, Denies dyspepsia and Denies nausea Denies hematuria and Denies dysuria Musc Denies abnormal gait, Denies myalgias, Denies arthralgias, Denies numbness and Denies tingling Skin/Breast Denies rash, Denies unusual bruising and Denies wounds Neuro Denies abnormal gait, Denies dizziness, Denies headache(s), Reports memory loss, Denies numbness, Denies Sensory deficit (Neuro), Denies tingling and Denies weakness Psych Reports anxiety, Reports depression, Denies memory loss Endo Denies cold intolerance, Denies fatigue, Denies heat intolerance, Denies polydipsia and Denies polyuria Aller/Immun Denies wheezing Physical exam (Primary Care) Vital Signs: Last Vital Signs Temp 98.6 F 12/28/24 12:41 Pulse 79 12/28/24 12:41 Resp 16 12/28/24 12:41 BP 118/67 12/28/24 12:41 Pulse Ox 96 12/28/24 12:41 Oxygen Delivery Method Room Air 12/28/24 12:41 BMI result Body Mass Index 25.3 Tobacco/Smoking Status: Tobacco use Status Tobacco use date assessed 12/28/24 12/28/24 12:47 Patient Tobacco Use Status Never used Tobacco 12/28/24 12:38 e-Cigarette/Vaping Use Never Used 12/28/24 12:38 PHQ-9: PHQ-9 Score PHQ-9: Total score 10 12/28/24 13:26 Depression Screening Interpretation: Positive Depression Screening Follow-up: Existing condition and In treatment Thrive Assessment: Date of Thrive Assessment Date Thrive assessed 08/13/24 12/28/24 12:38 Currently or been in a relationship where the following occur: No concerns reported Const Other: General: no acute distress and well developed Nutritional Appearance: well nourished Orientation/consciousness: patient oriented x3 HENMT Head: Yes normocephalic and Yes atraumatic Eyes General: appearance normal, both eyes and all related structures Pupils: Equal, round and reactive pupils present EOM: EOMs intact bilaterally Resp Effort & Inspection: normal respiratory effort Auscultation: clear to auscultation bilaterally Cardio Rate: regular rate Rhythm: regular rhythm Heart sounds: S1 normal heart sound present, S2 normal heart sound present, no gallops, no murmurs and no rubs GI Palpation (GI): No Abdominal aortic bruit present, Soft to palpation, nontender, No hepatosplenomegaly present and No Rebound tenderness present Auscultation: normal bowel sounds General: Yes no CVA tenderness Back/Spine/Pelvis Back: no CVA tenderness Cervical Spine: cervical ROM normal and No Cervical spine tenderness Thoracic/Lumbar Spine: thoraco-lumbar ROM normal, No pain with thoraco-lumbar ROM, No thoracic spinal tenderness and No lumbar spinal tenderness Extrem General: Yes normal to inspection, No edema and No calf tenderness Skin General: warm and dry. Normal skin color. Normal skin turgor Neuro General: patient oriented x3, gait normal and no focal neuro deficit Cranial nerves: Yes Equal, round and reactive pupils present Cognition (Neuro): normal cognition Gait exam (Neuro): Normal gait present Sensory Exam: No Sensory deficit (Neuro) Psych Appearance: grossly normal Affect: normal affect Attitude: cooperative Thought process: Normal thought process present Coding Level of Care Code Est Pt Level 4 (84493) Diagnoses Anxiety and depression F41.9; F32.A Obstructive sleep apnea G47.33 High cholesterol E78.00 Microalbuminuria R80.9 Normocytic anemia D64.9 Additional Codes JORGITO-7 Assessment Billing - JORGITO-7 Assessment Tool: JORGITO-7 Assessment 50181 ([id number]) PHQ-9 - 60282 - PHQ-9 Billing: Yes ([id number]) Assessment & Plan Assessment & Plan (1) Anxiety and depression: Code(s): F41.9 - Anxiety disorder, unspecified; F32.A - Depression, unspecified Category: Medical Plan: According to her daughter, the patient often feels depressed because she is no longer able to be the independent caregiver she was. Her anxiety level is generally mild-moderate and depression is generally mild. Her daughter believes the patient does not sleep adequately at night. 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 She is followed by [facility] sleep medicine. PHQ-9 and JORGITO-7 scores revealed moderate depression and anxiety. Fluoxetine increased to 30 mg daily; advised to take as prescribed. Hydroxyzine 25 mg 3 times daily ordered; advised to take as prescribed. May take 50 mg at bedtime for sleep. Instructed on the risks, benefits, and potential adverse reactions of the medication. Encouraged to use CPAP as instructed. Follow-up with sleep medicine as planned. Return in 2 weeks for anxiety and depression or sooner with worsening or new symptoms. Verbalized understanding and agreed with the plan. (2) Obstructive sleep apnea: Code(s): G47.33 - Obstructive sleep apnea (adult) (pediatric) Category: Medical Plan: Plan as above. (3) High cholesterol: Code(s): E78.00 - Pure hypercholesterolemia, unspecified Category: Medical Plan: Recent lipid panel level is normal. Continue current treatment regimen. Advised to limit foods high in saturated fat and avoid foods high in trans fat. Routine exercise encouraged. Will monitor lipid panel level every 6-12 months or as needed. Verbalized understanding and agreed with the plan. (4) Microalbuminuria: Code(s): R80.9 - Proteinuria, unspecified Category: Medical Plan: She reports inconsistency with adequate hydration. Recent urine microalbumin/creatinine ratio is elevated, 50.4 from 49.9. Recent BUN and creatinine level normal. Likely dehydration. Adequate hydration encouraged. Will recheck urine microalbumin level in 2 months. Verbalized understanding and agreed with the plan. (5) Normocytic anemia: Code(s): D64.9 - Anemia, unspecified Category: Medical Plan: Recent RBC and H&H is slightly low, 3.42 and 10.8/32.5 respectively, MCV is normal. Recent iron level is normal, ferritin level is elevated. Likely anemia of chronic disease. Will monitor CBC periodically or as needed. Verbalized understanding and agreed with the plan. Orders: Orders Microalbumin, Random (w Creat) 2 Months R80.9 - Proteinuria, unspecified Medications: New hydroxyzine HCl 25 mg PO TID PRN 90 tabs 1RF anxiety paroxetine HCl 30 mg PO DAILY 30 tabs 3RF 30 days Discontinued paroxetine HCl Discontinued Reason: Doctor's Order 20 mg PO DAILY 90 tabs 0RF
--- NOTE | 2024-12-28 12:36 | MHC.PC.OV ---
Vital Signs 12/28/24 12:41 Height 5 ft 2 in Weight 138 lb 4 oz BMI 25.3 BP 118/67 Blood Pressure Location Rt brachial Position Sitting Respiration 16 Pulse 79 Pulse Source Pulse Oximeter Temp 98.6 F Temp Source Oral Pulse Oximetry (%) 96 Oxygen Delivery Method Room Air Intake Visit Reasons: 3 mos HLD, microalbuminuria, anxiety, depression Allergies No Known Allergies Allergy (Verified 12/28/24 12:40) Tobacco use date assessed: 08/28/24 Dental Screening Dental Screen Date: 08/28/24 [facility] Medical History Shingles Depression Anxiety Memory loss High cholesterol Surgical History Hx of tonsillectomy Family History Father Alcohol abuse Mother Alcohol abuse Diabetes Son Alcohol abuse Daughter FH: mental illness Social History Housing: House Patient Tobacco Use Status: Never used Tobacco e-Cigarette/Vaping Use: Never Used Second Hand Smoke Exposure: No service: No Current occupational status: retired Cognitive needs: No Hearing needs: No Vision needs: No Questionnaire Thrive Questionnaire Date Thrive assessed: 08/13/24 I am a: Patient What is your living situation today?: I have a steady place to live Within the past 12 months, did the food you bought not last and you didn't have the money to get more?: Never true Within the past 12 months, did you worry whether your food would run out before you got money to buy more?: Never true Do you have trouble paying for medicines?: No Do you have trouble getting transportation to medical appointments?: No Do you have trouble paying your heating and electricity bill?: No Do you have trouble taking care of your child, family member or friend?: No Do you have trouble with day-to-day activities such as bathing, preparing meals, shopping, managing finances, etc.?: No Are you currently unemployed and looking for a job?: No Are you interested in more education?: No Please select the resources that you would like help with: None Currently or been in a relationship where the following occur: No concerns reported THRIVE Score: 0 JORGITO-7 AMB Questionnaire JORGITO-7 Date JORGITO - 7 assessed: 08/14/24 Source: Developed by Drs. Carmelo Mcduffie, Holly Batista, Lauri Quigley and colleagues, with an educational madhuri from [employer]. Review of Systems Const Details: Const Denies chills, Denies fatigue, Denies fever(s), Denies headache(s) and Denies weakness ENT Denies dizziness and Denies headache(s) Card Denies chest pain, Denies lightheadedness, Denies dyspnea and Denies other (Palpitations) Resp Denies cough, Denies dyspnea, Denies wheezing and Denies other ( shortness of breath) GI Denies abdominal pain, Denies melena, Denies hematochezia, Denies change in bowel habits, Denies dyspepsia and Denies nausea Denies hematuria and Denies dysuria Musc Denies abnormal gait, Denies myalgias, Denies arthralgias, Denies numbness and Denies tingling Skin/Breast Denies rash, Denies unusual bruising and Denies wounds Neuro Denies abnormal gait, Denies dizziness, Denies headache(s), Denies memory loss, Denies numbness, Denies Sensory deficit (Neuro), Denies tingling and Denies weakness Psych Denies anxiety, Denies depression, Denies memory loss Endo Denies cold intolerance, Denies fatigue, Denies heat intolerance, Denies polydipsia and Denies polyuria Aller/Immun Denies wheezing Physical exam (Primary Care) Vital Signs: Last Vital Signs Temp 98.6 F 12/28/24 12:41 Pulse 79 12/28/24 12:41 Resp 16 12/28/24 12:41 BP 118/67 12/28/24 12:41 Pulse Ox 96 12/28/24 12:41 Oxygen Delivery Method Room Air 12/28/24 12:41 BMI result Body Mass Index 25.3 Tobacco/Smoking Status: Tobacco use Status Tobacco use date assessed 12/28/24 12/28/24 12:47 Patient Tobacco Use Status Never used Tobacco 12/28/24 12:40 e-Cigarette/Vaping Use Never Used 12/28/24 12:40 PHQ-9: PHQ-9 Score PHQ-9: Total score 10 12/28/24 13:11 Thrive Assessment: Date of Thrive Assessment Date Thrive assessed 08/13/24 12/28/24 12:40 Currently or been in a relationship where the following occur: No concerns reported Const Other: General: no acute distress and well developed Nutritional Appearance: well nourished Orientation/consciousness: patient oriented x3 [facility] Head: Yes normocephalic and Yes atraumatic Eyes General: appearance normal, both eyes and all related structures Pupils: Equal, round and reactive pupils present EOM: EOMs intact bilaterally Resp Effort & Inspection: normal respiratory effort Auscultation: clear to auscultation bilaterally Cardio Rate: regular rate Rhythm: regular rhythm Heart sounds: S1 normal heart sound present, S2 normal heart sound present, no gallops, no murmurs and no rubs GI Palpation (GI): No Abdominal aortic bruit present, Soft to palpation, nontender, No hepatosplenomegaly present and No Rebound tenderness present Auscultation: normal bowel sounds General: Yes no CVA tenderness Back/Spine/Pelvis Back: no CVA tenderness Cervical Spine: cervical ROM normal and No Cervical spine tenderness Thoracic/Lumbar Spine: thoraco-lumbar ROM normal, No pain with thoraco-lumbar ROM, No thoracic spinal tenderness and No lumbar spinal tenderness Extrem General: Yes normal to inspection, No edema and No calf tenderness Skin General: warm and dry. Normal skin color. Normal skin turgor Neuro General: patient oriented x3, gait normal and no focal neuro deficit Cranial nerves: Yes Equal, round and reactive pupils present Cognition (Neuro): normal cognition Gait exam (Neuro): Normal gait present Sensory Exam: No Sensory deficit (Neuro) Psych Appearance: grossly normal Affect: normal affect Attitude: cooperative Thought process: Normal thought process present Coding Level of Care Code Est Pt Level 4 (24477) Diagnoses High cholesterol E78.00 Anxiety and depression F41.9; F32.A Microalbuminuria R80.9 Normocytic anemia D64.9 Assessment & Plan Assessment & Plan (1) High cholesterol: Code(s): E78.00 - Pure hypercholesterolemia, unspecified Category: Medical (2) Anxiety and depression: Code(s): F41.9 - Anxiety disorder, unspecified; F32.A - Depression, unspecified Category: Medical (3) Microalbuminuria: Code(s): R80.9 - Proteinuria, unspecified Category: Medical Plan: Recent urine microalbumin/creatinine ratio is elevated, 50.4 from 49.9. Recent BUN and creatinine level normal. (4) Normocytic anemia: Code(s): D64.9 - Anemia, unspecified Category: Medical
[2024-12-28 12:41] VITALS: BP 118/67; PULSE 79; RESP 16; TEMP 37; O2SAT 96; BMI 25.3
== END 2024-12-28 13:32 | disposition home or self-care (01) ==
LOC: HO.HMCFM 12:24
PROVIDERS: PCP Nurse Practitioner Family; Visit Provider Nurse Practitioner Family
DX: F41.9 Anxiety disorder, unspecified (principal); F32.A Depression, unspecified; G47.33 Obstructive sleep apnea (adult) (pediatric); E78.00 Pure hypercholesterolemia, unspecified; R80.9 Proteinuria, unspecified; D64.9 Anemia, unspecified

== ENCOUNTER → 2024-12-28 12:23 | Outpatient (BNVA) | payer MEDICARE, SELFPAY | PROVIDERS: PCP Nurse Practitioner Family; Visit Provider Nurse Practitioner Family | DX: G47.33 Obstructive sleep apnea (adult) (pediatric) (principal); F41.9 Anxiety disorder, unspecified; F32.A Depression, unspecified; E78.00 Pure hypercholesterolemia, unspecified; R80.9 Proteinuria, unspecified; D64.9 Anemia, unspecified; Z99.89 Dependence on other enabling machines and devices | CPT/HCPCS: 96127; 99212 ==

== ENCOUNTER 2025-01-08 09:03 | Outpatient (AMB) | payer MEDICARE, SELFPAY ==
--- NOTE | 2025-01-08 09:08 | A.OFFPC_ITS ---
Vital Signs 01/08/25 09:23 Weight 135 lb 6 oz BMI Reason not done Patient refused/unable BP 116/58 L Blood Pressure Location Lt brachial Position Sitting Respiration 16 Pulse 72 Pulse Source Pulse Oximeter Temp 97.4 F Temp Source Temporal Artery Scan Pulse Oximetry (%) 94 Oxygen Delivery Method Room Air Intake Visit Reasons: 2 wks anxiety, depression Intake Note: Alexia presents in the office today for a 2 week follow up to anxiety and depression. Patient is questioning the Hydroxizine TID PRN and how it is mccoy pposed to be taken. Allergies No Known Allergies Allergy (Verified 01/08/25 09:19) Medication List - Last Reconciled 01/08/25 by Luca Dorantes CNP Bacillus coagulans (Probiotic (B. coagulans)) cells PO calcium carbonate-vitamin D3 600 mg-10 mcg (400 unit) tabs PO hydroxyzine HCl 25 mg PO TID PRN ypjohqci-rhe-cfkh-FA-vit K-lut 8 mg iron-400 mcg-50 mcg (Centrum Silver Women) 1 tab PO DAILY paroxetine HCl 30 mg PO DAILY 30 days pravastatin 20 mg PO DAILY 30 days Tobacco use date assessed: 01/08/25 Fall risk assessment: 1 Fall in past year (Falling going up the stairs.) Last assessed Fall Risk: 01/08/25 Dental Screening Dental Screen Date: 01/08/25 Did you have a dental visit in the last 12 months?: No Did you have a dental problem in the last 6 months where you did not have access to dental care?: No Was dental information given to patient?: Yes HPI HPI Comments History of Present Illness Details 84-year-old female, accompanied by her alysha pena, presents for anxiety and depression follow-up. She admits to taking paroxetine and hydroxyzine as prescribed without adverse reactions. She reports controlled anxiety and depressive symptoms. She has been using her CPAP machine; she slept well once since she started using the machine. Most times she feels the air blowing through the mask to her face. She has been feeling wobbly, at times, for the past 2 weeks. She does not use an assistive device for ambulation. She also reports memory loss. Her daughter states that, at times, the patient has difficulty with short and long-term memory recall. No family history of dementia. Her symptoms have been ongoing for a long time recently worsened. [facility] Medical History (Updated 01/08/25 @ 09:47 by Luca Dorantes CNP) Shingles Depression Anxiety Memory loss High cholesterol Surgical History Hx of tonsillectomy Family History Father Alcohol abuse Mother Alcohol abuse Diabetes Son Alcohol abuse Daughter FH: mental illness Social History (Updated 01/08/25 @ 09:16 by Soledad Condon MA) Housing: House Alcohol intake: never Patient Tobacco Use Status: Never used Tobacco e-Cigarette/Vaping Use: Never Used Second Hand Smoke Exposure: No service: No Current occupational status: retired Cognitive needs: No Hearing needs: No Vision needs: No Questionnaire PHQ-9 Over the last 2 weeks, how often have you been bothered by any of the following problems? 1. Little interest or pleasure in doing things: not at all 2. Feeling down, depressed, or hopeless: not at all 3. Trouble falling or staying asleep, or sleeping too much: not at all 4. Feeling tired or having little energy: several days 5. Poor appetite or overeating: not at all 6. Feeling bad about yourself - or that you are a failure or have let yourself or your family down: not at all 7. Trouble concentrating on things, such as reading the newspaper or watching television: not at all 8. Moving or speaking so slowly that other people could have noticed. Or the opposite - being so fidgety or restless that you have been moving around a lot more than usual: not at all 9. Thoughts that you would be better off or of hurting yourself in some way: not at all Total score: 1 Depression Screening Interpretation: Negative Depression Screening Done: Yes 36947 - PHQ-9 Billing: Yes Source: Developed by Drs. Carmelo Mcduffie, Holly Batista, Lauri Quigley and colleagues, with an educational madhuri from [employer]. Thrive Questionnaire Date Thrive assessed: 08/13/24 I am a: Patient What is your living situation today?: I have a steady place to live Within the past 12 months, did the food you bought not last and you didn't have the money to get more?: Never true Within the past 12 months, did you worry whether your food would run out before you got money to buy more?: Never true Do you have trouble paying for medicines?: No Do you have trouble getting transportation to medical appointments?: No Do you have trouble paying your heating and electricity bill?: No Do you have trouble taking care of your child, family member or friend?: No Do you have trouble with day-to-day activities such as bathing, preparing meals, shopping, managing finances, etc.?: No Are you currently unemployed and looking for a job?: No Are you interested in more education?: No Please select the resources that you would like help with: None Currently or been in a relationship where the following occur: No concerns reported THRIVE Score: 0 JORGITO-7 AMB Questionnaire JORGITO-7 Date JORGITO - 7 assessed: 01/08/25 Feeling nervous, anxious, or on edge: 2 = More than half the days Not being able to stop or control worryin = Several days Worrying too much about different things: 0 = Not at all Trouble relaxin = Not at all Being so restless that it is hard to sit still: 0 = Not at all Becoming easily annoyed or irritable: 0 = Not at all Feeling afraid as if something awful might happen: 0 = Not at all Total JORGITO-7 score (0-4 normal; 5-9 mild; 10-14 moderate; 15-21 severe): 3 Source: Developed by Drs. Carmelo Mcduffie, Holly Batista, Luari Quigley and colleagues, with an educational madhuri from [employer]. JORGITO-7 Assessment Billing JORGITO-7 Assessment Tool: JORGITO-7 Assessment 48518 Review of Systems Const Details: Const Denies chills, Denies fatigue, Denies fever(s), Denies headache(s) and Denies weakness ENT Denies dizziness and Denies headache(s) Card Denies chest pain, Denies lightheadedness, Denies dyspnea and Denies other (Palpitations) Resp Denies cough, Denies dyspnea, Denies wheezing and Denies other ( shortness of breath) GI Denies abdominal pain, Denies melena, Denies hematochezia, Denies change in bowel habits, Denies dyspepsia and Denies nausea Denies hematuria and Denies dysuria Musc Denies abnormal gait, Denies myalgias, Denies arthralgias, Denies numbness and Denies tingling Skin/Breast Denies rash, Denies unusual bruising and Denies wounds Neuro Reports abnormal gait, Denies dizziness, Denies headache(s), Reports memory loss, Denies numbness, Denies Sensory deficit (Neuro), Denies tingling and Denies weakness Psych Denies anxiety, Denies depression, Denies memory loss Endo Denies cold intolerance, Denies fatigue, Denies heat intolerance, Denies polydipsia and Denies polyuria Aller/Immun Denies wheezing Physical exam (Primary Care) Tobacco/Smoking Status: Tobacco use Status Tobacco use date assessed 12/28/24 01/08/25 09:10 Patient Tobacco Use Status Never used Tobacco 01/08/25 09:16 e-Cigarette/Vaping Use Never Used 01/08/25 09:16 Depression Screening Interpretation: Negative Thrive Assessment: Date of Thrive Assessment Date Thrive assessed 08/13/24 01/08/25 09:10 Currently or been in a relationship where the following occur: No concerns reported Const Other: General: no acute distress and well developed Nutritional Appearance: well nourished Orientation/consciousness: patient oriented x3 HENMT Head: Yes normocephalic and Yes atraumatic Eyes General: appearance normal, both eyes and all related structures Pupils: Equal, round and reactive pupils present EOM: EOMs intact bilaterally Resp Effort & Inspection: normal respiratory effort Auscultation: clear to auscultation bilaterally Cardio Rate: regular rate Rhythm: regular rhythm Heart sounds: S1 normal heart sound present, S2 normal heart sound present, no gallops, no murmurs and no rubs GI Palpation (GI): No Abdominal aortic bruit present, Soft to palpation, nontender, No hepatosplenomegaly present and No Rebound tenderness present Auscultation: normal bowel sounds General: Yes no CVA tenderness Back/Spine/Pelvis Back: no CVA tenderness Cervical Spine: cervical ROM normal and No Cervical spine tenderness Thoracic/Lumbar Spine: thoraco-lumbar ROM normal, No pain with thoraco-lumbar ROM, No thoracic spinal tenderness and No lumbar spinal tenderness Extrem General: Yes normal to inspection, No edema and No calf tenderness Skin General: warm and dry. Normal skin color. Normal skin turgor Neuro General: patient oriented x3, gait normal and no focal neuro deficit Cranial nerves: Yes Equal, round and reactive pupils present Cognition (Neuro): normal cognition Gait exam (Neuro): Normal gait present Sensory Exam: No Sensory deficit (Neuro) Psych Appearance: grossly normal Affect: normal affect Attitude: cooperative Thought process: Normal thought process present Coding Level of Care Code Est Pt Level 4 (69734) Diagnoses Anxiety and depression F41.9; F32.A Severe obstructive sleep apnea G47.33 Memory loss R41.3 Unsteady gait R26.81 Additional Codes JORGITO-7 Assessment Billing - JORGITO-7 Assessment Tool: JORGITO-7 Assessment 89706 ([id number]) PHQ-9 - 12321 - PHQ-9 Billing: Yes ([id number]) Assessment & Plan Assessment & Plan (1) Anxiety and depression: Code(s): F41.9 - Anxiety disorder, unspecified; F32.A - Depression, unspecified Category: Medical Plan: Reports controlled anxiety and depressive symptoms. PHQ-9 and JORGITO-7 scores are normal. Continue current treatment regimen. Routine exercise encouraged. Follow-up in 3 months or sooner with symptoms or concerns. Verbalized understanding and agreed with the plan. (2) Severe obstructive sleep apnea: Code(s): G47.33 - Obstructive sleep apnea (adult) (pediatric) Category: Medical Plan: She has been using her CPAP machine; she slept well once since she started using the machine. Most times she feels the air blowing through the mask to her face. Encouraged to call the CPAP device specialist to assist with proper wearing of the device. Verbalized understanding and agreed with the plan. (3) Memory loss: Code(s): R41.3 - Other amnesia Category: Medical Plan: She also reports memory loss. Her daughter states that, at times, the patient has difficulty with short and long-term memory recall. No family history of dementia. Her symptoms have been ongoing for a long time recently worsened. May be associated with anxiety and depression. Now that her mood is improved, her memory may start to improve. Continue current treatment regimen. Follow-up with worsening or new symptoms. May refer to neuropsychiatry. Verbalized understanding and agreed with the plan. (4) Unsteady gait: Code(s): R26.81 - Unsteadiness on feet Category: Medical Plan: She has been feeling wobbly, at times, for the past 2 weeks. She does not use an assistive device for ambulation. Steady gait noted. Declined use of cane as recommended. Instructed on safety to prevent fall. Encouraged to follow-up with worsening or new symptoms. Verbalized understanding and agreed with plan.
--- OUTSIDE RECORDS SUMMARY | 2025-01-08 09:21 | XMS_ITS | Clinical Summary ---
Author Organization [address] [place] [address] [place] [phone] Phone Care Team Providers Care Laborer Tree Tapping Name Role Phone Lio Lowe MD Primary [...] * Annual BMP Blood Test (09/23/2023) Pathologist [facility] Annual BMP Blood Test abstracted Historical Provider HEALTH MAINTENANCE Final Result * (ABNORMAL) Lipid panel (09/23/2023) [facility] LDL/HDL Ratio 3 0 - 4 Triglycerides [...] (World Health Organization Fracture Risk Assessment) [facility] Department of Internal Medicine recommends using [...] alternative screening schedule based on tamika Lofton., [facility] June 24, 2011 for patients [...] (World Health Organization Fracture Risk Assessment) [facility] Department of Internal Medicine recommendsusing National [...] Most Recently Relevant to Health Maintenance Insurance [facility] Member Subscriber Plan / Payer (Ef fective 2022-Present) Name:Alexia Ruelas Relation to Subscriber:Self Name:Alexia Ruelas Payer ID:[id number] Group ID:[id number] Type:Not on file Address: [facility] [address] [phone] [facility] MEDICARE Member Subscriber Plan / Payer (Ef fective 2022-Present) Name:Alexia Ruelas Relation to Subscriber:Self Name:Alexia Ruelas Payer ID:[id number] Group ID:[id number] Type:Not on file Address: [address] [place] [phone] [employer] MED[employer]ARE ADVANTAGE [place]ICAID - [place] Care Teams Laborer Tree Tapping Relationship Specialty Start Date End Date Lio Lowe MD PCP - General Internal Medicine 07/25/24
--- OUTSIDE RECORDS SUMMARY | 2025-01-08 09:22 | XMS_ITS | Patient Health Record ---
Author Organization [facility] Address [address] [facility] [address] [place] [address] Care Team Providers Care Cart Driver Name Role Phone NAJMA GERMAN Primary Care Provider [phone] Allergies No Known Allergies Medications Medication SIG (Take, Route, Frequency, Duration) Notes Start Date End Date Status Biotin 5000 MCG 1 capsule Orally Onc e a day Not-Taking Pravastatin Sodium 20 MG Take 1 tablet b y mouth once daily for 90 days; Duration: 90 Active Hydrocortisone 1 % 1 application to affected area Externally Twice a day Active Triamcinolone Acetonide 0.5 % 1 application to affected area Externally Twice a day; Duration: 15 days Active Pravastatin Sodium 20 MG 1 tablet Orally Once a day; Duration: 90 days Active DHEA 50 MG Orally [...] Status W/U Status Risk Notes Problem Hyperlipidemia (12736938) Hyperlipidemia (E78.5) Active confirmed Problem History of malignant neoplasm of skin (situation) (927744842) Personal history of other malignant neoplasm of skin (Z85.828) Active confirmed Problem Hyperlipidemia (25280245) Hyperlipidemia (E78.5) Active confirmed Problem Senile purpura (15637983) Senile purpura (D69.2) Active confirmed Problem Localized, primary osteoarthritis of the hand (983245998) Osteoarthritis of left hand, unspecified osteoarthritis type (M19.042) Active confirmed Problem 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 Metabolic Panel (14) - 12786 02/22 CBC 02/14/2012 CBC 08/23/2013 CBC 01/29/2014 URINALYSIS ([facility] Only) 2013 URINALYSIS ([facility] Only) 2013 Venipuncture 02/22/2013 Venipuncture 08/09/2011 Venipuncture 06/23/2015 Venipuncture 11/25/2014 Venipuncture 08/23/2013 Venipuncture 01/29/2014 Venipuncture 01/11/2022 Venipuncture 07/08/2021 Venipuncture 03/09/2021 Venipuncture 08/28/2020 Venipuncture 08/07/2012 Venipuncture 02/08/2012 Hemoglobin A1c 02/14/2012 Lipid Panel 01/29/2014 Lipid Panel 02/15/2011 Comp. Metabolic Panel (14) - 528715 09/2011 Comp. Metabolic Panel (14) - 774060 02/04 mammogram bilateral breasts, diagnostic, with ultrasound 08/09/2011 LIPID PANEL 08/14/2012 LIPID PANEL 08/23/2013 LIPID PANEL 08/07/2012 HEMOGLOBIN A1C 02/22/2013 HEMOGLOBIN A1C 08/14/2012 BMP WITH GFR 02/14/2012 TSH 03/01/2013 CBC (INCLUDES DIFF/PLT) 08/14/2012 LIPID PANEL 02/14/2012 COMPREHENSIVE METABOLIC PANEL W/eGFR 10/2011 LIPID PANEL 08/09/2011 CBC (INCLUDES DIFF/PLT) 08/09/2011 URINALYSIS REFLEX 08/14/2012 LIPID PANEL 02/08/2012 CBC (INCLUDES DIFF/PLT) 02/08/2012 CMP WITH eGFR 08/14/2012 CMP WITH eGFR 01/29/2014 CMP14+eGFR - 223714 03/01/2013 CMP14+eGFR - 451024 08/23/2013 TSH 08/23/2013 Mammogram : screening 03/01/2013 CBC 03/01/2013 urinalysis 03/01/2013 Comp. Metabolic Panel (14) - 88322 11/25 LIPID PANEL 11/25/2014 Comp. Metabolic Panel (14) - 64784 06/23 Hemoglobin A1c 06/23/2015 LIPID PANEL 06/23/2015 TSH 06/23/2015 LIPID PANEL 12/22/2015 Comp. Metabolic Panel (12) 12/22/2015 Hemoglobin A1c 07/21/2016 Comp. Metabolic Panel (14) - 15774 07/21 LIPID PANEL 07/21/2016 TSH 07/21/2016 Hemoglobin [...] Test Name Order Date Lipid Panel - 208753 01/22/2020 Comp Metabolic Panel (14) - 865556 01/21 Hemoglobin A1c - 372291 09/04/2020 TSH - 041303 09/04/2020 CBC With Differential/Platelet - 696207 09/04/2020 Lipid Panel With LDL/HDL Ratio- 511716 0 09/04/2020 Comp Metabolic Panel (14) - 020280 09/04 Lipid Panel With LDL/HDL Ratio- 911439 1 Comp Metabolic Panel (14) - 450692 03/06 CBC With Differential/Platelet - 083239 07/17/2021 Lipid Panel With LDL/HDL Ratio- 628472 0 07/17/2021 Comp Metabolic Panel (14) - 714195 07/17 Vitamin B12 and Folate - 596461 07/20/19 23 938809 Iron and TIBC 07/20/2022 Hemoglobin A1c - 087565 07/20/2022 Ferritin, Serum - 992085 07/20/2022 CBC With Differential/Platelet - 07/20/2022 Vitamin D, 25-Hydroxy - 715780 Microalbumin Albumin/Creatinine Ratio,Ur ine - 229614 07/20/2022 Lipid Panel With LDL/HDL Ratio- 636832 0 07/20/2022 Comp Metabolic Panel (14) - 961771 07/20 TSH+T4+T3H 07/20/2022 Medical (General) History Medical History History ICD Code Dyslipidemia Flu vaccine at [facility] 01/2018 flu shot at [facility] 02/2020 Moderna vaccine 2nd 09/01/2020 booster 2nd booster 09/30/2020 flu shot in office 03/16/21 Surgical History Surgery Date(Month/Year) Basal Cells Removed 06/2020
[2025-01-08 09:23] VITALS: BP 116/58; PULSE 72; RESP 16; TEMP 36.3; O2SAT 94
== END 2025-01-08 09:44 | disposition home or self-care (01) ==
LOC: HO.HMCFM 09:03
PROVIDERS: PCP Nurse Practitioner Family; Visit Provider Nurse Practitioner Family
DX: F41.9 Anxiety disorder, unspecified (principal); F32.A Depression, unspecified; G47.33 Obstructive sleep apnea (adult) (pediatric); R41.3 Other amnesia; R26.81 Unsteadiness on feet

== ENCOUNTER → 2025-01-08 09:03 | Outpatient (BNVA) | payer MEDICARE, SELFPAY | PROVIDERS: PCP Nurse Practitioner Family; Visit Provider Nurse Practitioner Family | DX: G47.33 Obstructive sleep apnea (adult) (pediatric) (principal); F41.9 Anxiety disorder, unspecified; F32.A Depression, unspecified; R41.3 Other amnesia; R26.81 Unsteadiness on feet; Z99.89 Dependence on other enabling machines and devices; Z79.899 Other long term (current) drug therapy | CPT/HCPCS: 96127; 99212 ==

== ENCOUNTER → 2025-01-22 19:30 | Outpatient (REF) | payer MEDICARE, SELFPAY ==
--- OUTSIDE RECORDS SUMMARY | 2025-01-22 21:05 | XMS_ITS | Clinical Summary ---
Author Organization [address] [place] [address] [place] [phone] Phone Care Team Providers Care Distiller Name Role Phone Lio Lowe MD Primary [...] * Annual BMP Blood Test (09/23/2023) Pathologist [facility] Annual BMP Blood Test abstracted Historical Provider HEALTH MAINTENANCE Final Result * (ABNORMAL) Lipid panel (09/23/2023) [facility] LDL/HDL Ratio 3 0 - 4 Triglycerides [...] (World Health Organization Fracture Risk Assessment) [facility] Department of Internal Medicine recommends [...] alternative screening schedule based on tamika Lofton., [facility] June 24, 2011 for patients with [...] (World Health Organization Fracture Risk Assessment) [facility] Department of Internal Medicine recommendsusing [...] Recently Relevant to Health Maintenance Insurance [facility] Member Subscriber Plan / Payer (Ef fective 2022-Present) Name:Alexia Ruelas Relation to Subscriber:Self Name:Alexia Ruelas Payer ID:[id number] Group ID:[id number] Type:Not on file Address: [facility] [address] [phone] [facility] MEDICARE Member Subscriber Plan / Payer (Ef fective 2022-Present) Name:Alexia Ruelas Relation to Subscriber:Self Name:Alexia Ruelas Payer ID:[id number] Group ID:[id number] Type:Not on file Address: [address] [address] [employer] MED[employer]ARE ADVANTAGE [place]ID - [place] Care Teams Distiller Relationship Specialty Start Date End Date Lio Lowe MD PCP - General Internal Medicine 07/25/24
== END ==
LOC: HO.SL 19:30
PROVIDERS: PCP Nurse Practitioner Family; Visit Provider Physician Assistant Medical
DX: G47.33 Obstructive sleep apnea (adult) (pediatric) (principal); G47.61 Periodic limb movement disorder
CPT/HCPCS: 95811

== ENCOUNTER → 2025-01-22 19:30 | Outpatient (BNV) | payer MEDICARE, SELFPAY | PROVIDERS: PCP Nurse Practitioner Family; Visit Provider Psychiatry & Neurology Neurology | DX: G47.33 Obstructive sleep apnea (adult) (pediatric) (principal) | CPT/HCPCS: 95811 ==

== ENCOUNTER 2025-04-02 10:52 | Outpatient (AMB) | payer MEDICARE, SELFPAY ==
[2025-04-02 10:58] VITALS: BP 126/64; PULSE 83; O2SAT 98; BMI 26.4
--- NOTE | 2025-04-02 10:58 | A.OFFVIS_ITS ---
Vital Signs 04/02/25 10:58 Height 5 ft 2 in Weight 144 lb 4 oz BMI 26.4 BP 126/64 Blood Pressure Location Lt brachial Position Sitting Pulse 83 Pulse Source Pulse Oximeter Pulse Oximetry (%) 98 Oxygen Delivery Method Room Air Intake Visit Reasons: 3 mo follow up Intake Note: Patient presents follow up CANDY. Compliance in chart(85/88days, >=4hrs-41%, Average Usage- 3hrs 52min, Med Pressure-8.3, Med Leaks-16.6, AHI-33.6). Patient states zhou wakes her up Accompanied by: Daughter Allergies No Known Allergies Allergy (Verified 04/02/25 11:01) HPI Comments Details: 84 year old female presents for f/u of CANDY she is on cpap therapy. Her daughter Susan is here and helps with history. She says she had 3 sleep studies with Dorothy, she states 2 PSG, and a third was a BIPAP titration study. Titration study reviewed with pt and she is going to be started on BIPAP as she has candy/ csa and difficulty breathing at night. She goes to sleep various hours of the night, denies nocturia, snoring, gasping for air. She feels tired when she wakes up the next day, she moves around a lot in her sleep, tosses and turns all night long then takes plenty of naps through out the day. 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 RLS denies muscle spasms, numbness and tingling, occasional, she wears compression socks for bilateral ankle / feet edema. She states her L. knee is painful, she is able to go up and down the stairs and her daughter helps with all her ADLs. Her mood is anxious due to a possible upcoming move and she is getting confused more often according to her daughter. She can complete daily tasks but she can't remember if she has done them and takes a very long time to do them, like brushing her teeth. Now she is having more word finding difficulties, so she has to write down everything she needs to complete for the day. She has a history of depression and anxiety, however recently has been in good spirits, and she eats a well balanced diet, denies constipation, has a BM daily. Her Cholesterol is high and she is taking pravastatin, reviewed labs with her today and she has normocytic anemia, and micro-albuminemia she will f/u with her pcp in 3 months. She continues to have difficulty walking and getting out of a chair, dizziness when she stands, with balance and gait issues. [facility] Medical History Shingles Depression Anxiety Memory loss High cholesterol Surgical History Hx of tonsillectomy Family History Father Alcohol abuse Mother Alcohol abuse Diabetes Son Alcohol abuse Daughter FH: mental illness Social History Housing: House Alcohol intake: never Patient Tobacco Use Status: Never used Tobacco e-Cigarette/Vaping Use: Never Used Second Hand Smoke Exposure: No service: No Current occupational status: retired Cognitive needs: No Hearing needs: No Vision needs: No Physical Exam Vital Signs: Last Vital Signs Pulse 83 04/02/25 10:58 BP 126/64 04/02/25 10:58 Pulse Ox 98 04/02/25 10:58 Oxygen Delivery Method Room Air 04/02/25 10:58 BMI result Body Mass Index 26.4 Const Other: per duaghter she is more forgetful General: cooperative, comfortable and no acute distress Nutritional Appearance: average body habitus Orientation/consciousness: oriented to person, oriented to place and oriented to time Limitations: ambulation with walker HEENT Face and sinus: Yes face symmetric Teeth and gingiva: other (mallampti score is 3) Eyes Pupils: Equal, round and reactive pupils present Resp Effort & Inspection: normal respiratory effort and able to speak in complete sentences Neuro General: oriented to person, oriented to place and oriented to time Cranial nerves: Yes Equal, round and reactive pupils present, Yes Normal accommodation reflex present, Yes Normal facial strength present, Yes Ability to bilaterally rotate head present and Yes Ability to bilaterally elevate shoulders present Motor exam (neuro): Abnormal motor strength present and Abnormal muscle tone present Psych Appearance: well kempt Speech and movement: Normal speech and movement present Attitude: cooperative Thought process: Normal thought process present Thought content: Normal thought content present Results Reviewed Results Reviewed: Titration 03/01/2025 Start Bipap and f/u for compliance Compliance Report CANDY / Central Sleep apnea / Assessment & Plan Assessment & Plan (1) CANDY on CPAP: Comment: rx for bipap is sent Code(s): G47.33 - Obstructive sleep apnea (adult) (pediatric); Z99.89 - Dependence on other enabling machines and devices Category: Medical (2) Normocytic anemia: Code(s): D64.9 - Anemia, unspecified Category: Medical (3) Restless legs syndrome with familial myoclonus: Code(s): G25.81 - Restless legs syndrome; G25.3 - Myoclonus Category: Medical (4) Severe obstructive sleep apnea: Code(s): G47.33 - Obstructive sleep apnea (adult) (pediatric) Category: Medical (5) Nocturnal hypoxemia: Code(s): G47.34 - Idiopathic sleep related nonobstructive alveolar hypoventilation Category: Medical (6) 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 Start Bipap therapy at and will f/u with pt re: compliance. RLS will f/u with 100mg po daily of gabapentin. Gait and balance instability declines PT Labs to r/o deficiencies, as she continues to be anemic. Follow-up in 3 months. Orders: Orders Ferritin 04/02/25 D64.9 - Anemia, unspecified, G25.3 - Myoclonus, G25.81 - Restless legs syndrome Methylmalonic Acid 04/02/25 D64.9 - Anemia, unspecified, G25.3 - Myoclonus, G25.81 - Restless legs syndrome, G47.9 - Sleep disorder, unspecified, R53.83 - Other fatigue Vitamin D 25-OH Total 04/02/25 D64.9 - Anemia, unspecified, G25.3 - Myoclonus, G25.81 - Restless legs syndrome Vitamin B12 and Folate 04/02/25 D64.9 - Anemia, unspecified, G25.3 - Myoclonus, G25.81 - Restless legs syndrome Complete Blood Count no Diff 04/02/25 D64.9 - Anemia, unspecified, G25.3 - Myoclonus, G25.81 - Restless legs syndrome Comprehensive Met. Panel 04/02/25 D64.9 - Anemia, unspecified, G25.3 - Myoclonus, G25.81 - Restless legs syndrome Homocysteine 04/02/25 D64.9 - Anemia, unspecified, G25.3 - Myoclonus, G25.81 - Restless legs syndrome, G47.9 - Sleep disorder, unspecified, R53.83 - Other fatigue Magnesium 04/02/25 D64.9 - Anemia, unspecified, G25.3 - Myoclonus, G25.81 - Restless legs syndrome TSH reflex Free T4 04/02/25 D6.9 - Anemia, unspecified, G25.3 - Myoclonus, G25.81 - Restless legs syndrome Parathyroid Hormone Intact 04/02/25 D6.9 - Anemia, unspecified, G25.3 - Myoclonus, G25.81 - Restless legs syndrome Medications: New gabapentin 100 mg PO BEDTIME 120 caps 0RF RLS 4 months MDD 100mg G25.81 - Restl ess legs syndrome, H81.93 - Unspecified disorder of vestibular function, bilateral Patient Instructions: metabolic, and cognitive dysfunction. Thus, pt advised to start PAP tx as ordered. Start APAP 5-20 cmH2O w/ EPR set to need, nightly > 4 hours, as pt continues to have good clinical effect from use. * Patient may benefit from sleeping with her head elevated, such as using a sleep apnea wedge pillow * Clean CPAP machine and supplies routinely. * Change CPAP supplies routinely. * Use distilled water in CPAP water reservoir. * Pt to contact us or respiratory company with any questions or concerns. In-lab PAP titration sleep study as ordered by Milan SPARROW. however, if patient is unable to do this, then patient should undergo nocturnal pulse oximetry study x1 night on room air while using APAP therapy to assess effectiveness of PAP therapy on nocturnal hypoxemia and heart rate. Future considerations: Pulmonary consult For cognitive difficulties: Complete MMSE/Blair once patient has started and consistently using PAP therapy with good reduction in residual sleep apnea and optimization of nocturnal hypoxemia. Pt to follow-up in 3 months or sooner prn. 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
--- OUTSIDE RECORDS SUMMARY | 2025-04-02 13:55 | XMS_ITS | Patient Health Record ---
Author Organization [facility] Address [address] [facility] [address] [place] [address] Care Team Providers Care Assistant Offset Press Operator Name Role Phone NAJMA GERMAN Primary Care [...] Status W/U Status Risk Notes Problem Hyperlipidemia (86875054) Hyperlipidemia (E78.5) Active confirmed Problem History of malignant neoplasm of skin (situation) (124123248) Personal history of other malignant neoplasm of skin (Z85.828) Active confirmed Problem Hyperlipidemia (41310408) Hyperlipidemia (E78.5) Active confirmed Problem Senile purpura (65070572) Senile purpura (D69.2) Active confirmed Problem Localized, primary osteoarthritis of the hand (938851292) Osteoarthritis of left hand, unspecified osteoarthritis type (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 Metabolic Panel (14) - 28514 02/22 CBC 08/23/2013 CBC 01/29/2014 CBC 02/14/2012 URINALYSIS ([facility] Only) 2013 URINALYSIS ([facility]) 2013 Venipuncture 01/29/2014 Venipuncture 08/23/2013 Venipuncture 02/08/2012 Venipuncture 08/07/2012 Venipuncture 02/22/2013 Venipuncture 11/25/2014 Venipuncture 06/23/2015 Venipuncture 08/09/2011 Venipuncture 08/28/2020 Venipuncture 03/09/2021 Venipuncture 07/08/2021 Venipuncture 01/11/2022 Hemoglobin A1c 02/14/2012 Lipid Panel 02/15/2011 Lipid Panel 01/29/2014 Comp. Metabolic Panel (14) - 881127 02/04 Comp. Metabolic Panel (14) - 119738 09/2011 mammogram bilateral breasts, diagnostic, with ultrasound [...] 01/29/2014 CMP WITH eGFR 08/14/2012 CMP14+eGFR - 386184 03/01/2013 CMP14+eGFR - 321340 08/23/2013 TSH 08/23/2013 Mammogram : screening 03/01/2013 CBC 03/01/2013 urinalysis 03/01/2013 Comp. Metabolic Panel (14) - 54443 11/25 LIPID PANEL 11/25/2014 Comp. Metabolic Panel (14) - 19991 06/23 Hemoglobin A1c 06/23/2015 LIPID PANEL 06/23/2015 TSH 06/23/2015 LIPID PANEL 12/22/2015 Comp. Metabolic Panel (12) 12/22/2015 Hemoglobin A1c 07/21/2016 Comp. Metabolic Panel (14) - 65760 07/21 LIPID PANEL 07/21/2016 TSH 07/21/2016 Hemoglobin [...] Test Name Order Date Lipid Panel - 515242 01/22/2020 Comp Metabolic Panel (14) - 062096 01/21 Hemoglobin A1c - 030889 09/04/2020 TSH - 391205 09/04/2020 CBC With Differential/Platelet - 188827 09/04/2020 Lipid Panel With LDL/HDL Ratio- 734937 0 09/04/2020 Comp Metabolic Panel (14) - 386585 09/04 Lipid Panel With LDL/HDL Ratio- 332412 1 Comp Metabolic Panel (14) - 442317 03/06 CBC With Differential/Platelet - 364601 07/17/2021 Lipid Panel With LDL/HDL Ratio- 332757 0 07/17/2021 Comp Metabolic Panel (14) - 011567 07/17 Vitamin B12 and Folate - 084152 07/20/19 23 384806 Iron and TIBC 07/20/2022 Hemoglobin A1c - 186072 07/20/2022 Ferritin, Serum - 312682 07/20/2022 CBC With Differential/Platelet - 07/20/2022 Vitamin D, 25-Hydroxy - 246023 Microalbumin Albumin/Creatinine Ratio,Ur ine - 512147 07/20/2022 Lipid Panel With LDL/HDL Ratio- 099359 0 07/20/2022 Comp Metabolic Panel (14) - 427875 07/20 TSH+T4+T3H 07/20/2022 Medical (General) History Medical History History ICD Code Dyslipidemia Flu vaccine at [facility] 01/2018 flu shot at [facility] 02/2020 Moderna vaccine 2nd 09/01/2020 booster 2nd booster 09/30/2020 flu shot in office 03/16/21 Surgical History Surgery Date(Month/Year) Basal Cells Removed 06/2020
== END 2025-04-02 12:07 | disposition home or self-care (01) ==
LOC: HO.HSMS 10:54
PROVIDERS: PCP Nurse Practitioner Family; Visit Provider Physician Assistant Medical
DX: G47.33 Obstructive sleep apnea (adult) (pediatric) (principal); Z99.89 Dependence on other enabling machines and devices; D64.9 Anemia, unspecified; G25.81 Restless legs syndrome; G25.3 Myoclonus; G47.34 Idiopathic sleep related nonobstructive alveolar hypoventilation; H81.93 Unspecified disorder of vestibular function, bilateral
CPT/HCPCS: 99214

== ENCOUNTER → 2025-04-02 10:52 | Outpatient (BNVA) | payer MEDICARE, SELFPAY | PROVIDERS: PCP Nurse Practitioner Family; Visit Provider Physician Assistant Medical | DX: G47.33 Obstructive sleep apnea (adult) (pediatric) (principal); G25.81 Restless legs syndrome; G25.3 Myoclonus; G47.34 Idiopathic sleep related nonobstructive alveolar hypoventilation; H81.93 Unspecified disorder of vestibular function, bilateral; D64.9 Anemia, unspecified; Z99.89 Dependence on other enabling machines and devices | CPT/HCPCS: 99212 ==

== ENCOUNTER 2025-04-08 10:05 | Outpatient (REF) | payer MEDICARE, SELFPAY ==
[2025-04-08 10:53] LABS: Hematocrit 36.7 % (37.0-47.0); Hemoglobin 11.8 g/dl (12.0-16.0); Mean Corpuscular HGB Conc 32.2 g/dl (31.0-35.0); Mean Corpuscular Hemoglobin 30.3 pg (27.0-33.0); Mean Corpuscular Volume 94.3 fL (80.0-98.0); NRBC Abs Auto 0.000 X10*3/uL (0.0-0.012); NRBC Pct Auto 0.0 /100WBC (0.0-0.2); Platelet Count 256 X10*3/uL (160-400); Red Blood Count 3.89 X10*6/uL (4.20-5.50); White Blood Count 5.7 X10*3/uL (4.8-10.8)
[2025-04-08 11:00] LABS: Appearance Urine Hazy; Glucose Urine UA Negative (Negative); PH 6.5 (5.0-9.0); Specific Gravity - Urine <= 1.005 (1.005-1.025); UMIC TRIGGER UACC YES
[2025-04-08 11:39] LABS: UACC Culture Trigger YES
[2025-04-08 11:40] LABS: Alanine Aminotransferase 18 U/L (0-31); Albumin Level 4.4 g/dL (3.5-5.0); Alkaline Phosphatase 70 U/L (39-117); Anion Gap 10 (12-20); Aspartate Amino Transferase 27 U/L (5-31); Blood Urea Nitrogen 11 mg/dL (9-16); Calcium 10.0 mg/dL (8.4-10.2); Carbon Dioxide 33 mmol/L (22-29); Chloride 103 mmol/L (96-108); Estimated Glomerular Filt Rate > 60; Magnesium 1.9 mg/dL (1.6-2.6); Potassium 3.5 mmol/L (3.3-5.1); Sodium 142 mmol/L (135-145); Total Protein 7.3 g/dL (6.5-8.0)
[2025-04-08 11:54] LABS: Ferritin 447 ng/mL (10-250)
--- OUTSIDE RECORDS SUMMARY | 2025-04-08 12:05 | XMS_ITS | Patient Health Record ---
Author Organization [facility] Address [address] [facility] [address] [place] [address] Care Team Providers Care Zinc Plate Cutter Name Role Phone NAJMA GERMAN Primary Care [...] Status W/U Status Risk Notes Problem Hyperlipidemia (99460511) Hyperlipidemia (E78.5) Active confirmed Problem History of malignant neoplasm of skin (situation) (822864904) Personal history of other malignant neoplasm of skin (Z85.828) Active confirmed Problem Hyperlipidemia (46342686) Hyperlipidemia (E78.5) Active confirmed Problem Senile purpura (04326184) Senile purpura (D69.2) Active confirmed Problem Localized, primary osteoarthritis of the hand (139662256) Osteoarthritis of left hand, unspecified osteoarthritis type (M19.042) Active confirmed Problem Major depression in partial remission (15357662) 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 Metabolic Panel (14) - 84019 02/22 CBC 01/29/2014 CBC 08/23/2013 CBC 02/14/2012 [facility]ALYSIS ([facility]) 2013 UR[facility]ALYSIS ([facility]) 2013 Venipuncture 02/22/2013 Venipuncture 03/09/2021 Venipuncture 01/11/2022 Venipuncture 06/23/2015 Venipuncture 11/25/2014 Venipuncture 01/29/2014 Venipuncture 08/09/2011 Venipuncture 08/23/2013 Venipuncture 02/08/2012 Venipuncture 08/07/2012 Venipuncture 07/08/2021 Venipuncture 08/28/2020 Hemoglobin A1c 02/14/2012 Lipid Panel 02/15/2011 Lipid Panel 01/29/2014 Comp. Metabolic Panel (14) - 605915 09/2011 Comp. Metabolic Panel (14) - 754497 02/04 mammogram bilateral breasts, diagnostic, with ultrasound [...] 01/29/2014 CMP WITH eGFR 08/14/2012 CMP14+eGFR - 174503 03/01/2013 CMP14+eGFR - 741056 08/23/2013 TSH 08/23/2013 Mammogram : screening 03/01/2013 CBC 03/01/2013 urinalysis 03/01/2013 Comp. Metabolic Panel (14) - 35124 11/25 LIPID PANEL 11/25/2014 Comp. Metabolic Panel (14) - 23672 06/23 Hemoglobin A1c 06/23/2015 LIPID PANEL 06/23/2015 TSH 06/23/2015 LIPID PANEL 12/22/2015 Comp. Metabolic Panel (12) 12/22/2015 Hemoglobin A1c 07/21/2016 Comp. Metabolic Panel (14) - 38208 07/21 LIPID PANEL 07/21/2016 TSH 07/21/2016 Hemoglobin [...] Test Name Order Date Lipid Panel - 455851 01/22/2020 Comp Metabolic Panel (14) - 008015 01/21 Hemoglobin A1c - 613750 09/04/2020 TSH - 583034 09/04/2020 CBC With Differential/Platelet - 227781 09/04/2020 Lipid Panel With LDL/HDL Ratio- 832940 0 09/04/2020 Comp Metabolic Panel (14) - 321122 09/04 Lipid Panel With LDL/HDL Ratio- 767664 1 Comp Metabolic Panel (14) - 223925 03/06 CBC With Differential/Platelet - 863978 07/17/2021 Lipid Panel With LDL/HDL Ratio- 888694 0 07/17/2021 Comp Metabolic Panel (14) - 325296 07/17 Vitamin B12 and Folate - 128340 07/20/19 23 593176 Iron and TIBC 07/20/2022 Hemoglobin A1c - 460874 07/20/2022 Ferritin, Serum - 223248 07/20/2022 CBC With Differential/Platelet - 07/20/2022 Vitamin D, 25-Hydroxy - 934986 Microalbumin Albumin/Creatinine Ratio,Ur ine - 846433 07/20/2022 Lipid Panel With LDL/HDL Ratio- 060300 0 07/20/2022 Comp Metabolic Panel (14) - 573685 07/20 TSH+T4+T3H 07/20/2022 Medical (General) History Medical History History ICD Code Dyslipidemia Flu vaccine at [facility] 01/2018 flu shot at [facility] 02/2020 Moderna vaccine 2nd 09/01/2020 booster 2nd booster 09/30/2020 flu shot in office 03/16/21 Surgical History Surgery Date(Month/Year) Basal Cells Removed 06/2020
[2025-04-08 12:08] LABS: Folate 13.6 ng/mL (> or = 4.0); Vitamin B12 1036 pg/mL (200-900)
[2025-04-08 13:28] LABS: Parathyroid Hormone Intact 19.6 pg/mL (8.7-77.1)
== END 2025-04-08 10:06 | disposition home or self-care (01) ==
LOC: HO.LAB 10:05
PROVIDERS: Absent Provider Nurse Practitioner Family; PCP Nurse Practitioner Family; Visit Provider Physician Assistant Medical
DX: Z00.00 Encounter for general adult medical examination without abnormal findings (principal); G25.81 Restless legs syndrome; G25.3 Myoclonus; R53.83 Other fatigue; G47.9 Sleep disorder, unspecified; D64.9 Anemia, unspecified; Z13.6 Encounter for screening for cardiovascular disorders
CPT/HCPCS: 36415; 80053; 81001; 81003; 82306; 82607; 82728; 82746; 83090; 83735; 83921; 83970; 84443; 85027; 87086

== ENCOUNTER 2025-04-15 10:35 | Outpatient (REF) | payer MEDICARE, SELFPAY ==
[2025-04-15 14:39] LABS: Appearance Urine Clear; Glucose Urine UA Negative (Negative); PH 7.5 (5.0-9.0); Specific Gravity - Urine <= 1.005 (1.005-1.025); UMIC TRIGGER UACC YES
[2025-04-15 14:46] LABS: UACC Culture Trigger YES
[2025-04-15 15:15] LABS: Microalbum/Creatinine Ratio Ur 65.1 ug/mg cr (<30)
== END 2025-04-15 10:36 | disposition home or self-care (01) ==
LOC: CF 10:35
PROVIDERS: PCP Nurse Practitioner Family; Visit Provider Nurse Practitioner Family
DX: Z13.89 Encounter for screening for other disorder (principal)
CPT/HCPCS: 36415; 81001; 82043; 82570; 86141; 87086; 96127; 99212

== ENCOUNTER 2025-04-15 10:35 | Outpatient (AMB) | payer MEDICARE, SELFPAY ==
--- NOTE | 2025-04-15 10:37 | A.OFFPC_ITS ---
Vital Signs 04/15/25 10:53 Height 5 ft 2 in Weight 146 lb 3 oz BMI 26.7 BP 133/63 Blood Pressure Location Lt brachial Position Sitting Respiration 16 Pulse 79 Pulse Source Pulse Oximeter Temp 97.7 F Temp Source Oral Pulse Oximetry (%) 96 Oxygen Delivery Method Room Air Intake Visit Reasons: 3 mos anx, dep Intake Note: patient here for 3 month follow up on anxiety and depression Percolator Operator Required: No Is last menstrual period known: No Post menopausal: No Patient : No Allergies No Known Allergies Allergy (Verified 04/15/25 11:20) Medication List - Last Reconciled 04/15/25 by Luca Dorantes CNP Bacillus coagulans (Probiotic (B. coagulans)) cells PO calcium carbonate-vitamin D3 600 mg-10 mcg (400 unit) tabs PO gabapentin 100 mg PO BEDTIME 4 months MDD 100mg hydroxyzine HCl 25 mg PO DAILY ijqlixos-spv-bgch-FA-vit K-lut 8 mg iron-400 mcg-50 mcg (Centrum Silver Women) 1 tab PO DAILY paroxetine HCl 30 mg PO DAILY 30 days pravastatin 20 mg PO DAILY 30 days Tobacco use date assessed: 04/15/25 Fall risk assessment: No Falls in past year Last assessed Fall Risk: 04/15/25 Dental Screening Dental Screen Date: 04/15/25 Did you have a dental visit in the last 12 months?: Yes Did you have a dental problem in the last 6 months where you did not have access to dental care?: No Was dental information given to patient?: Patient has dentist HPI HPI Comments History of Present Illness Details 85-year-old female, accompanied by her alysha pena, presents for anxiety and depression follow-up. She admits to taking her medications as prescribed without adverse reactions. Her daughter notes that the patient's mood is much better. She notes that the patient is sometimes forgetful, both short and long time - no changes since last visit. Reports swelling to the PIP joint of the right 3rd digit with intermittent pain, ongoing for the past 1 year. She notes limited ROM of the finger. Cool compresses helps. She has not been taking medication for the pain. She requests an xray. [facility] Medical History Shingles Depression Anxiety Memory loss High cholesterol Surgical History Hx of tonsillectomy Family History Father Alcohol abuse Mother Alcohol abuse Diabetes Son Alcohol abuse Daughter FH: mental illness Social History Housing: House Alcohol intake: never Patient Tobacco Use Status: Never used Tobacco e-Cigarette/Vaping Use: Never Used Second Hand Smoke Exposure: No Patient : No service: No Current occupational status: retired Current occupational exposures/hazards: No Cognitive needs: No Hearing needs: No Vision needs: No Questionnaire PHQ-9 Over the last 2 weeks, how often have you been bothered by any of the following problems? 1. Little interest or pleasure in doing things: not at all 2. Feeling down, depressed, or hopeless: not at all 3. Trouble falling or staying asleep, or sleeping too much: not at all 4. Feeling tired or having little energy: several days 5. Poor appetite or overeating: not at all 6. Feeling bad about yourself - or that you are a failure or have let yourself or your family down: not at all 7. Trouble concentrating on things, such as reading the newspaper or watching television: not at all 8. Moving or speaking so slowly that other people could have noticed. Or the opposite - being so fidgety or restless that you have been moving around a lot more than usual: not at all 9. Thoughts that you would be better off or of hurting yourself in some way: not at all Total score: 1 Depression Screening Interpretation: Negative Depression Screening Done: Yes 23994 - PHQ-9 Billing: Yes Source: Developed by Drs. Carmelo Mcduffie, Holly Batista, Lauri Quigley and colleagues, with an educational madhuri from [employer]. Thrive Questionnaire Date Thrive assessed: 04/15/25 I am a: Patient What is your living situation today?: I have a steady place to live Within the past 12 months, did the food you bought not last and you didn't have the money to get more?: Never true Within the past 12 months, did you worry whether your food would run out before you got money to buy more?: Never true Do you have trouble paying for medicines?: No Do you have trouble getting transportation to medical appointments?: No Do you have trouble paying your heating and electricity bill?: No Do you have trouble taking care of your child, family member or friend?: No Do you have trouble with day-to-day activities such as bathing, preparing meals, shopping, managing finances, etc.?: No Are you currently unemployed and looking for a job?: No Are you interested in more education?: No Please select the resources that you would like help with: None Currently or been in a relationship where the following occur: No concerns reported THRIVE Score: 0 JORGITO-7 AMB Questionnaire JORGIOT-7 Date JORGITO - 7 assessed: 04/15/25 Feeling nervous, anxious, or on edge: 0 = Not at all Not being able to stop or control worryin = Several days Worrying too much about different things: 0 = Not at all Trouble relaxin = Not at all Being so restless that it is hard to sit still: 0 = Not at all Becoming easily annoyed or irritable: 0 = Not at all Feeling afraid as if something awful might happen: 0 = Not at all Total JORGITO-7 score (0-4 normal; 5-9 mild; 10-14 moderate; 15-21 severe): 1 Source: Developed by Drs. Carmelo Mcduffie, Holly Batista, Lauri Quigley and colleagues, with an educational madhuri from [employer]. JORGITO-7 Assessment Billing JORGITO-7 Assessment Tool: JORGITO-7 Assessment 37128 Review of Systems Const Details: Const Denies chills, Denies fatigue, Denies fever(s), Denies headache(s) and Denies weakness ENT Denies dizziness and Denies headache(s) Card Denies chest pain, Denies lightheadedness, Denies dyspnea and Denies other (Palpitations) Resp Denies cough, Denies dyspnea, Denies wheezing and Denies other ( shortness of breath) GI Denies abdominal pain, Denies melena, Denies hematochezia, Denies change in bowel habits, Denies dyspepsia and Denies nausea Denies hematuria and Denies dysuria Musc Reports as per HPI Skin/Breast Denies rash, Denies unusual bruising and Denies wounds Neuro Denies abnormal gait, Denies dizziness, Denies headache(s), Denies memory loss, Denies numbness, Denies Sensory deficit (Neuro), Denies tingling and Denies weakness Psych Denies anxiety, Denies depression, Reports memory loss Endo Denies cold intolerance, Denies fatigue, Denies heat intolerance, Denies polydipsia and Denies polyuria Aller/Immun Denies wheezing Physical exam (Primary Care) Vital Signs: Last Vital Signs Temp 97.7 F 04/15/25 10:53 Pulse 79 04/15/25 10:53 Resp 16 04/15/25 10:53 BP 133/63 04/15/25 10:53 Pulse Ox 96 04/15/25 10:53 Oxygen Delivery Method Room Air 04/15/25 10:53 BMI result Body Mass Index 26.7 Tobacco/Smoking Status: Tobacco use Status Tobacco use date assessed 04/15/25 04/15/25 10:57 Patient Tobacco Use Status Never used Tobacco 04/15/25 10:39 e-Cigarette/Vaping Use Never Used 04/15/25 10:39 PHQ-9: PHQ-9 Score PHQ-9: Total score 1 04/15/25 10:58 Depression Screening Interpretation: Negative Thrive Assessment: Date of Thrive Assessment Date Thrive assessed 04/15/25 04/15/25 10:58 Currently or been in a relationship where the following occur: No concerns reported Const Other: General: no acute distress and well developed Nutritional Appearance: well nourished Orientation/consciousness: patient oriented x3 [facility] Head: Yes normocephalic and Yes atraumatic Eyes General: appearance normal, both eyes and all related structures Pupils: Equal, round and reactive pupils present EOM: EOMs intact bilaterally Resp Effort & Inspection: normal respiratory effort Auscultation: clear to auscultation bilaterally Cardio Rate: regular rate Rhythm: regular rhythm Heart sounds: S1 normal heart sound present, S2 normal heart sound present, no gallops, no murmurs and no rubs Musc Significant edema to the PIP joint of the right 3rd digit, tender to palpation, limited ROM, color WNL, no overt injury or trauma Skin General: warm and dry. Normal skin color. Normal skin turgor Neuro General: patient oriented x3, gait normal and no focal neuro deficit Cranial nerves: Yes Equal, round and reactive pupils present Cognition (Neuro): normal cognition Gait exam (Neuro): Normal gait present Sensory Exam: No Sensory deficit (Neuro) Psych Appearance: grossly normal Affect: normal affect Attitude: cooperative Thought process: Normal thought process present Coding Level of Care Code Est Pt Level 4 (31647) Diagnoses Anxiety and depression F41.9; F32.A Memory loss R41.3 Elevated ferritin R79.89 Pain of finger of right hand M79.644 Additional Codes JORGITO-7 Assessment Billing - JORGITO-7 Assessment Tool: JORGITO-7 Assessment 88836 ([id number]) PHQ-9 - 28868 - PHQ-9 Billing: Yes ([id number]) Assessment & Plan Assessment & Plan (1) Anxiety and depression: Code(s): F41.9 - Anxiety disorder, unspecified; F32.A - Depression, unspecified Category: Medical Plan: Her mood has been better. PHQ-9 and JORGITO-7 scores are normal. Continue current treatment regimen. Follow-up for transfer of care within the [facility] in 2 months. Return sooner with symptoms or concerns. Verbalized understanding and agreed with the plan. (2) Memory loss: Code(s): R41.3 - Other amnesia Category: Medical Plan: Her daughter notes that the patient's mood is much better. She notes that the patient is sometimes forgetful, both short and long time - no changes since last visit. Will referred to neuropsychiatry. (3) Elevated ferritin: Code(s): R79.89 - Other specified abnormal findings of blood chemistry Category: Medical Plan: Recent ferritin level is elevated, 447, previous level was 427. Inflammation may be contributory. Will check CRP level. Referred to Hematology/Oncology. (4) Pain of finger of right hand: Code(s): M79.644 - Pain in right finger(s) Category: Medical Plan: Reports swelling to the PIP joint of the right 3rd digit with intermittent pain, ongoing for the past 1 year. She notes limited ROM of the finger. Cool compresses helps. She has not been taking medication for the pain. She requests an xray. Significant edema to the PIP joint of the right 3rd digit, tender to palpation, limited ROM, color WNL, no overt injury or trauma. Likely arthritis. Ibuprofen 600 mg every 8 hours as needed ordered; advised to take as prescribed and with food. Instructed on the risks, benefits, and potential adverse reactions of the medication. Continue with cool compresses. X-ray ordered. Follow-up with worsening or new symptoms. Verbalized understanding and agreed with the plan. Orders: Orders CRP High Sensitivity Today R79.89 - Other specified abnormal findings of blood chemistry XR hand RT 2V Today M79.644 - Pain in right finger(s) Referrals Neuropsychiatry Referral R41.3 - Other amnesia Hematology & Oncology Referral R79.89 - Other specified abnormal findings of blood chemistry Medications: New ibuprofen Take with food 600 mg PO Q8H PRN 60 tabs 1RF pain
[2025-04-15 10:53] VITALS: BP 133/63; PULSE 79; RESP 16; TEMP 36.5; O2SAT 96; BMI 26.7
--- OUTSIDE RECORDS SUMMARY | 2025-04-15 12:29 | XMS_ITS | Clinical Summary ---
Author Organization [address] [place] [address] [place] [id number] Phone Care Team Providers Care [facility] Program Director Name Role Phone Lio Lowe MD Primary [...] 1 Capsule by mouth daily. Active Immunizations Immunization Administration Dates Next Due Influenza trivalent, 0.5mL [...] Depression Screening 06/06/2024 COVID-19 Vaccine ( season) 2025 03/23/2024, 10/04/2023, 06/07/2023, Additional history exists Influenza Vaccine (#1) 2025 , 03/30/2023, 05/06/2022 [...] Procedure Name Priority Date/Time Associated Diagnosis Comments LIPID PANEL Routine 09/23/2023 DXA BONE DENSITY STUDY 1+ SITS AXIAL SKEL Routine 10/20/2022 9:35 AM EDT Encounter for screening for osteoporosis from Last 3 Months or Most Recently Relevant to Health Maintenance Results * (ABNORMAL) Lipid panel (09/23/2023) LDL/HDL Ratio 3 0 - 4 Triglycerides 79(A) >=150 mg/dL Cholesterol 177 0 - 200 mg/dL HDL 63 >=40 mg/dL LDL Cholesterol 99 0 - 100 mg/dL Blood Venous blood specimen / Unknown us Historical Provider LAB BLOOD ORDERABLES Alison l [...] (World Health Organization Fracture Risk Assessment) [facility] Department of Internal Medicine recommends using National [...] schedule based on tamika Lofton., [facility] June 24, 2011 for patients [...] (World Health Organization Fracture Risk Assessment) [facility] Department of Internal Medicine recommendsusing National Osteoporosis [...] screening schedule based on loly Lofton al., NEJMJanuary 2011 for patients with osteopenia (based [...] file Address: [address] [place] [id number] [facility] [employer] Member Subscriber Plan / Payer (Ef fective 2022-Present) Name:Alexia Ruelas Relation to Subscriber:Self Name:Alexia Ruelas Payer ID:[id number] Group ID:[id number] Type:Not on file Address: [address] [place] [id number] [employer] MEDICAID [place] Care Teams [facility] Program Director Relationship Specialty Start Date End Date Lio Lowe MD PCP - General Internal Medicine 07/25/24
== END 2025-04-15 11:44 | disposition home or self-care (01) ==
LOC: HO.HMCFM 10:36
PROVIDERS: PCP Nurse Practitioner Family; Visit Provider Nurse Practitioner Family
DX: F41.9 Anxiety disorder, unspecified (principal); F32.A Depression, unspecified; R41.3 Other amnesia; R79.89 Other specified abnormal findings of blood chemistry; M79.644 Pain in right finger(s)

== ENCOUNTER 2025-04-15 14:34 | Outpatient (REF) | payer MEDICARE, SELFPAY ==
--- NOTE | ~2025-04-15 | XR_ITS ---
EXAMINATION: XR HAND, RIGHT CLINICAL INFORMATION: M79.644 - Pain in right finger(s) COMPARISON: None available. TECHNIQUE: PA, lateral, and oblique views of the right hand. FINDINGS: Subchondral cyst formation, bony erosions, asymmetric joint space narrowing involving middle and distal interphalangeal joints of the digits pronounced on the second and third digits. No acute cortical disruption or malalignment. Degenerative changes in the first and second carpometacarpal joints. Joint space narrowing, radiocarpal joint. Chondrocalcinosis in the carpal ulnar joint. Osteopenia versus osteoporosis. XR/XR hand RT min 3V IMPRESSION: Osteoarthrosis/osteoarthritis, moderate to severe.. Osteopenia versus osteoporosis. Electronically signed by: Lars Cartagena MD 04/15/2025 03:12 PM [facility]
== END 2025-04-15 14:35 | disposition home or self-care (01) ==
LOC: HO.XRAY 14:34
PROVIDERS: PCP Nurse Practitioner Family; Visit Provider Nurse Practitioner Family
DX: M79.644 Pain in right finger(s) (principal); F41.9 Anxiety disorder, unspecified; F32.A Depression, unspecified; R41.3 Other amnesia; R79.89 Other specified abnormal findings of blood chemistry
CPT/HCPCS: 36415; 73130; 81001; 82043; 82570; 86141; 87086; 96127; 99212

== ENCOUNTER → 2025-04-15 14:40 | Outpatient (BNV) | payer MEDICARE, SELFPAY | PROVIDERS: PCP Nurse Practitioner Family; Visit Provider Radiology Diagnostic Radiology | DX: M79.644 Pain in right finger(s) (principal) | CPT/HCPCS: 73130 ==

== ENCOUNTER → 2025-05-27 09:57 | Outpatient (BNV) | payer MEDICARE, SELFPAY | PROVIDERS: PCP Physician Assistant Medical; Referring Provider Physician Assistant Medical; Visit Provider Internal Medicine | DX: D64.9 Anemia, unspecified (principal) | CPT/HCPCS: 99204; G2211 ==